=== PATIENT | female | born 1940 | race Caucasian/White ===

== ENCOUNTER 2019-05-10 13:18 | Inpatient (IN) | payer MEDICARE, SELFPAY ==
[2019-05-10 13:52] VITALS: BP 101/61; PULSE 110; RESP 20; TEMP 36.9; O2SAT 96; BMI 16.9
--- NOTE | 2019-05-10 15:02 | XR_ITS ---
WS: [id number] PORTABLE CHEST HISTORY: cough COMPARISON: 04/17/2019 Mild hyperexpansion of the lungs. Opacifications in the lower lung lowery seen on the prior study hav e slightly improved but not resolved. Persistent interstitial thickening at the medial RIGHT lung bas e. More focal nodule in the LEFT lower lung field measuring 1.5 cm. This nodule may contain a central cavitation. Overall the opacification in the LEFT lower lung field has slightly improved. No pleural effusion or pneumothorax. Cardiac size: Normal. Mediastinum/Aorta: Mild atherosclerosis aorta. Osteopenia. Prior IVC filter placement. 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 XR/XR chest 1V portable [id number] IMPRESSION: 1. Slight improvement in opacifications in the lower lung lowery as compared t o 04/17/2019. Likely due to improving pneumonia and atelectasis. 2. Appearance of a more focal nodule at the LEFT base measures 1.5 cm. Suggest follow-up chest CT with IV contrast to exclude developing abscess or neoplasm.
--- NOTE | 2019-05-10 15:06 | ED_ITS ---
Entered by Kae Garcia, acting as scribe for HPI - General Adult General: Chief complaint: General Medical Stated complaint: dehydrated Time Seen by Provider: 05/10/19 15:04 Source: patient and family Mode of arrival: ambulatory Limitations: no limitations History of Present Illness: HPI narrative: 79 yo female presents with abdomen pain. pt states she was seen by PCP yesterday and they had her labs drawn and they sent her here today. pt was DX with Cdiff. pt states her diarrhea got better after eating yogurt. pt denies any other symptoms at this time. MD complaint: diarrhea Onset (ago): day(s) (yesterday) Location: abdomen Radiation: non-radiation Severity: moderate Quality: aching Pain Consistency: constant Relieving factors: none Exacerbating factors: none Associated symptoms: Reports fevers/chills, nausea and vomiting; Deny chest pain, dyspnea or rash Treatments prior to arrival: none Review of Systems Const: Reports: chills and other (diarrhea, dehydrated) ENMT: Denies: throat pain, ear pain, nasal discharge or nasal congestion Card: Denies: chest pain, edema, shortness of breath on exertion or shortness of breath when lying down Resp: Denies: shortness of breath, productive cough or non-productive cough GI: Reports: abdominal pain, nausea, vomiting and diarrhea (yesterday,better with yogurt); Denies: vomiting blood, coffee grounds in vomit or blood in stool : Denies: flank pain, difficulty urinating, painful urination, urinary frequency or urinary urgency Skin/Breast: Denies: rash or itching PFSH ED PFSH: Statuses (acute, chronic, etc) shown below reflect problem list status as previously entered and may not be historically accurate Medical History History of DVT of lower extremity (Acute) 2010, Elvia filter placed, unknown if ever retrieved. Occurred in setting other acute medical issues. History of pleural empyema (Acute) 2010, had temporary tunneled catheter for drainage Surgical History Previous back surgery (Acute) unclear details Family History Mother , lived to 100s No problems noted. Social History Smoking and tobacco status: never smoked Alcohol intake: current Alcohol intake frequency: holidays/special occasions only Substance/Drug Use: never Household members: family Marital status: / Physical Exam Const: COMMON NORMALS: no apparent distress GENERAL APPEARANCE: cooperative and comfortable ORIENTATION/CONSCIOUSNESS: Yes awake, Yes oriented to person, Yes oriented to place and Yes oriented to time HENMT: COMMON NORMALS: normocephalic, head/scalp atraumatic, hearing grossly normal bilaterally, external ears normal, EAC's normal, TM's normal bilaterally, nasal mucous membranes and turbinates normal, moist oral mucous membranes and oropharynx normal HEAD & SCALP: normocephalic and atraumatic NOSE: nasal mucous membranes and turbinates normal EXTERNAL EAR: Yes external ears normal EXTERNAL AUDITORY CANAL: EAC's normal TYMPANIC MEMBRANE: TM's normal bilaterally Eye: COMMON NORMALS: PERRL, EOMs intact bilaterally, conjunctivae normal and no scleral icterus CONJUNCTIVA: Yes conjunctivae normal PUPIL: Yes PERRL Neck/C-Spine: COMMON NORMALS: full ROM, no lymphadenopathy, supple and no JVD Lymph: LYMPHATIC: no lymphadenopathy noted and no lymphedema noted Resp: COMMON NORMALS: normal respiratory effort, no retractions, no use of accessory muscles and clear to auscultation bilaterally AUSCULTATION: clear to auscultation bilaterally Cardio: COMMON NORMALS: no JVD, regular rate, regular rhythm and no murmurs RATE: regular rate RHYTHM: regular rhythm GI: COMMON NORMALS: no hepatosplenomegaly AUSCULTATION: Yes normoactive bowel sounds PALPATION: Yes tender (Generalized), No guarding, No rigid and Yes no hepatosplenomegaly Extremity: COMMON NORMALS: normal to inspection, normal capillary refill, no clubbing, cyanosis or edema, no calf tenderness and no pedal edema Neuro: SENSORIUM/ORIENTATION: Yes oriented to person, Yes oriented to place and Yes oriented to time Skin: COMMON NORMALS: no rashes or lesions noted GENERAL SKIN EXAM: no rashes or lesions noted Course ED course: I called [facility]id Pardo to get old H&H they last two they have are 1 0.9 on 10/05/18 and 11.5 on March 2016. Patient has mild abdominal discomfort is significantly anemic. We will admit her for anemia and further evaluation of her abdominal discomfort. Vital Signs: Vital signs: Vital Signs Temperature 98.7 F 05/12/19 09:47 Pulse Rate 90 05/12/19 07:25 Respiratory Rate 16 05/12/19 09:47 Blood Pressure 124/73 05/12/19 07:25 Pulse Oximetry 94 05/12/19 09:47 [facility] - General Adult Lab Data: Attestation: I reviewed the patient's lab results. Labs: Lab Results 05/10/19 05/10/19 05/10/19 Range/Units 15:28 15:28 15:28 WBC 7.7 (4.0-10.0) 10^3/ uL RBC 2.92 L (4.1-5.3) 10^6/u L Hgb 9.7 L (11.5-15.3) g/dL Hct 30.3 L (37.0-47.0) % MCV 103.8 H (81-99) fL MCH 33.2 (28.0-34.0) pg MCHC 32.0 (30.0-36.0) g/dL RDW 12.8 (12.1-15.1) % Plt Count 248 (130-400) 10^3/c mm MPV 9.8 (7.4-10.4) fL Neut % (Auto) 65.7 % Lymph % (Auto) 24.4 % Kemper % (Auto) 6.2 % Eos % (Auto) 2.3 % Baso % (Auto) 0.8 % Neut # (Auto) 5.1 (1.8-7.7) 10^3/u L Lymph # (Auto) 1.9 (0.8-4.8) 10^3/u L Kemper # (Auto) 0.5 (0.2-0.9) 10^3/u L Eos # (Auto) 0.2 (0.0-0.8) 10^3/u L Baso # (Auto) 0.1 (0.0-0.1) 10^3/u L Nucleated RBC % (a uto) 0 % Nucleated RBCs # 0.0 /100WBC Sodium 139 (136-145) mmol/L Potassium 4.3 (3.5-5.1) mmol/L Chloride 101 (98-107) mmol/L Carbon Dioxide 25 (22-29) mmol/L Anion Gap 17.3 (5-19) BUN 17 (8-23) mg/dL Creatinine 1.5 H (0.5-0.9) mg/dL Glucose 97 (74-106) mg/dL Lactate 1.7 (0.5-2.2) mmol/L Calcium 9.7 (8.8-10.2) mg/Dl Magnesium 1.8 (1.7-2.3) mg/dL Iron (37-145) ug/dL TIBC mg/dL % Saturation (20-50) % Unsat Iron Binding (112-347) ug/dL Total Bilirubin 0.3 (0.15-1.2) mg/dL AST 21 (0-32) U/L ALT 11 (0-33) U/L Alkaline Phosphata se 99 (35-105) IU/L Total Protein 7.2 (6.6-8.7) g/dL Albumin 3.4 L (3.5-5.2) g/dL Globulin 3.8 (1.3-4.6) g/dL Lipase 39 (13-60) U/L Vitamin B12 (232-1245) pg/mL Folate (4.8-37.3) ng/mL Urine Color (Yellow) Urine Appearance (CLEAR) Urine pH (5-7) Ur Specific Gravit y (1.005-1.030) Urine Protein (Negative) Urine Glucose (UA) (Normal) Urine Ketones (Negative) Urine Occult Blood (Negative) Urine Nitrate (Negative) Urine Bilirubin (NEGATIVE) Urine Urobilinogen (Negative) mg/dL Ur Leukocyte Huyen ase (Negative) 05/10/19 05/11/19 05/11/19 Range/Units 23:56 10:21 10:21 WBC 6.4 (4.0-10.0) 10^3/ uL RBC 2.59 L (4.1-5.3) 10^6/u L Hgb 9.1 L (11.5-15.3) g/dL Hct 27.9 L (37.0-47.0) % MCV 107.7 H (81-99) fL MCH 35.1 H (28.0-34.0) pg MCHC 32.6 (30.0-36.0) g/dL RDW 13.1 (12.1-15.1) % Plt Count 212 (130-400) 10^3/c mm MPV 9.9 (7.4-10.4) fL Neut % (Auto) 68.5 % Lymph % (Auto) 21.3 % Kemper % (Auto) 6.1 % Eos % (Auto) 3.0 % Baso % (Auto) 0.5 % Neut # (Auto) 4.4 (1.8-7.7) 10^3/u L Lymph # (Auto) 1.4 (0.8-4.8) 10^3/u L Kemper # (Auto) 0.4 (0.2-0.9) 10^3/u L Eos # (Auto) 0.2 (0.0-0.8) 10^3/u L Baso # (Auto) 0.0 (0.0-0.1) 10^3/u L Nucleated RBC % (a uto) 0 % Nucleated RBCs # 0.0 /100WBC Sodium 140 (136-145) mmol/L Potassium 3.7 (3.5-5.1) mmol/L Chloride 104 (98-107) mmol/L Carbon Dioxide 24 (22-29) mmol/L Anion Gap 15.7 (5-19) BUN 12 (8-23) mg/dL Creatinine 1.3 H (0.5-0.9) mg/dL Glucose 125 H (74-106) mg/dL Lactate (0.5-2.2) mmol/L Calcium 8.9 (8.8-10.2) mg/Dl Magnesium (1.7-2.3) mg/dL Iron 50 (37-145) ug/dL TIBC 170 mg/dL % Saturation 29.4 (20-50) % Unsat Iron Binding 120 (112-347) ug/dL Total Bilirubin 0.3 (0.15-1.2) mg/dL AST 17 (0-32) U/L ALT 9 (0-33) U/L Alkaline Phosphata se 77 (35-105) IU/L Total Protein 5.7 L D (6.6-8.7) g/dL Albumin 3.0 L (3.5-5.2) g/dL Globulin 2.7 (1.3-4.6) g/dL Lipase (13-60) U/L Vitamin B12 604 (232-1245) pg/mL Folate (4.8-37.3) ng/mL Urine Color Yellow (Yellow) Urine Appearance Clear (CLEAR) Urine pH 5 (5-7) Ur Specific Gravit y 1.020 (1.005-1.030) Urine Protein Neg (Negative) Urine Glucose (UA) Norm (Normal) Urine Ketones Negative (Negative) Urine Occult Blood Neg (Negative) Urine Nitrate Negative (Negative) Urine Bilirubin Neg (NEGATIVE) Urine Urobilinogen Norm (Negative) mg/dL Ur Leukocyte Huyen ase Negative (Negative) 05/11/19 Range/Units 10:21 WBC (4.0-10.0) 10^3/ uL RBC (4.1-5.3) 10^6/u L Hgb (11.5-15.3) g/dL Hct (37.0-47.0) % MCV (81-99) fL MCH (28.0-34.0) pg MCHC (30.0-36.0) g/dL RDW (12.1-15.1) % Plt Count (130-400) 10^3/c mm MPV (7.4-10.4) fL Neut % (Auto) % Lymph % (Auto) % Kemper % (Auto) % Eos % (Auto) % Baso % (Auto) % Neut # (Auto) (1.8-7.7) 10^3/u L Lymph # (Auto) (0.8-4.8) 10^3/u L Kemper # (Auto) (0.2-0.9) 10^3/u L Eos # (Auto) (0.0-0.8) 10^3/u L Baso # (Auto) (0.0-0.1) 10^3/u L Nucleated RBC % (a uto) % Nucleated RBCs # /100WBC Sodium (136-145) mmol/L Potassium (3.5-5.1) mmol/L Chloride (98-107) mmol/L Carbon Dioxide (22-29) mmol/L Anion Gap (5-19) BUN (8-23) mg/dL Creatinine (0.5-0.9) mg/dL Glucose (74-106) mg/dL Lactate (0.5-2.2) mmol/L Calcium (8.8-10.2) mg/Dl Magnesium (1.7-2.3) mg/dL Iron (37-145) ug/dL TIBC mg/dL % Saturation (20-50) % Unsat Iron Binding (112-347) ug/dL Total Bilirubin (0.15-1.2) mg/dL AST (0-32) U/L ALT (0-33) U/L Alkaline Phosphata se (35-105) IU/L Total Protein (6.6-8.7) g/dL Albumin (3.5-5.2) g/dL Globulin (1.3-4.6) g/dL Lipase (13-60) U/L Vitamin B12 (232-1245) pg/mL Folate 10.2 (4.8-37.3) ng/mL Urine Color (Yellow) Urine Appearance (CLEAR) Urine pH (5-7) Ur Specific Gravit y (1.005-1.030) Urine Protein (Negative) Urine Glucose (UA) (Normal) Urine Ketones (Negative) Urine Occult Blood (Negative) Urine Nitrate (Negative) Urine Bilirubin (NEGATIVE) Urine Urobilinogen (Negative) mg/dL Ur Leukocyte Huyen ase (Negative) Imaging Data^: CXR: Radiologist's impression: [address] [id number] XRay Report Signed Patient: Aida James AMR#: [id number] : 9Acct:[id number] Age/Sex: 79 / FADM Date: 05/10/19 Loc: ER Attending Dr: Ordering Physician: Shubham High DO Date of Service: 05/10/19 Procedure(s): XR chest 1V portable [id number] Accession Number(s): [id number] Report Number: [id number] WS: [id number] PORTABLE CHEST HISTORY: cough COMPARISON: 04/17/2019 Mild hyperexpansion of the lungs. Opacifications in the lower lung lowery seen on the prior study have slightly improved but not resolved. Persistent interstitial thickening at the medial RIGHT lung base. More focal nodule in the LEFT lower lung field measuring 1.5 cm. This nodule may contain a central cavitation. Overall the opacification in the LEFT lower lung field has slightly improved. No pleural effusion or pneumothorax. Cardiac size: Normal. Mediastinum/Aorta: Mild atherosclerosis aorta. Osteopenia. Prior IVC filter placement. Several vertebroplasties in the lower thoracic vertebral bodies. XR/XR chest 1V portable [id number] IMPRESSION: 1. Slight improvement in opacifications in the lower lung lowery as compared to 04/17/2019. Likely due to improving pneumonia and atelectasis. 2. Appearance of a more focal nodule at the LEFT base measures 1.5 cm. Suggest follow-up chest CT with IV contrast to exclude developing abscess or neoplasm. Dictated By:Jennifer Lowery DO Signed By:Jennifer Lowery DOSigned Date/Time:05/10/191606 DD/ 160 Discharge Plan Discharge Patient Disposition: Admitted As Inpatient Admit Provider: Matt Garcia Clinical Impression: Acute kidney injury, Macrocytic anemia, Abnormal CXR (chest x-ray) Condition: Stable Discharge Orders: Discharge Order (Routine); Ordered 05/12/19 Ordered By: Marla Bowden Referrals: [facility] ([facility]) [Outside] Ace Bedolla MD [Primary Care Provider] - (You have an appointment made with Dr. Bedolla on at 11:15am.) Discharge Diet: Usual diet Discharge Activity: with continued fall precautions Patient Instructions: Anemia, Dehydration - Adult, Acetaminophen/Codeine (By mouth), Alendronate (By mouth), Acute Kidney Injury (DC), Iron Rich Diet (DC) Interventions: ED Discharge Assessment Last Done: 05/10/19 19:01 Discharge Date/Time: 05/10/19 20:46 Coding Level of Care Code ED Potato Seed Cutter for Chg Fwd Exam Problem Focused The documentation recorded by the Jose monahan Bridget Annette, accurately reflects the service I personally performed and the decisions made by Anila ramirez Curtis L, DO May 10, 2019 13:18
[2019-05-10 15:37] LABS: Basophils # 0.1 10^3/uL (0.0-0.1); Basophils % 0.8 %; Eosinophils # 0.2 10^3/uL (0.0-0.8); Eosinophils % 2.3 %; Hematocrit 30.3 % (37.0-47.0); Hemoglobin 9.7 g/dL (11.5-15.3); Lymphocytes # 1.9 10^3/uL (0.8-4.8); Lymphocytes % 24.4 %; Mean Corpuscular Hemoglobin 33.2 pg (28.0-34.0); Mean Corpuscular Volume 103.8 fL (81-99); Mean Platelet Volume 9.8 fL (7.4-10.4); Monocytes # 0.5 10^3/uL (0.2-0.9); Monocytes % 6.2 %; Neutrophils # 5.1 10^3/uL (1.8-7.7); Neutrophils % 65.7 %; Nucleated Red Blood Cells % 0 %; Platelet Count 248 10^3/cmm (130-400); Red Blood Count 2.92 10^6/uL (4.1-5.3); Red Cell Distribution Width 12.8 % (12.1-15.1); White Blood Count 7.7 10^3/uL (4.0-10.0)
[2019-05-10 15:50] LABS: Lactate (Lactic Acid level) 1.7 mmol/L (0.5-2.2)
[2019-05-10] MEDS: sodium chloride 0.9% 1,000 ML 999 ML IV (16:00)
[2019-05-10 16:58] LABS: Alanine Aminotransferase 11 U/L (0-33); Albumin Level 3.4 g/dL (3.5-5.2); Alkaline Phosphatase 99 IU/L (35-105); Anion Gap 17.3 (5-19); Aspartate Amino Transferase 21 U/L (0-32); Blood Urea Nitrogen 17 mg/dL (8-23); Calcium 9.7 mg/Dl (8.8-10.2); Carbon Dioxide 25 mmol/L (22-29); Chloride 101 mmol/L (98-107); Globulin 3.8 g/dL (1.3-4.6); Glucose 97 mg/dL (74-106); Magnesium 1.8 mg/dL (1.7-2.3); Potassium 4.3 mmol/L (3.5-5.1); Sodium 139 mmol/L (136-145); Total Bilirubin 0.3 mg/dL (0.15-1.2); Total Protein 7.2 g/dL (6.6-8.7)
[2019-05-10 16:59] LABS: Lipase 39 U/L (13-60)
[2019-05-10 19:01] VITALS: BP 127/77; PULSE 88; RESP 16; O2SAT 98
--- NOTE | 2019-05-10 19:39 | PC.NURSE ---
pt given sack lunch. resting comfortably, no further needs at this time.
--- NOTE | 2019-05-10 19:59 | PC.NURSE ---
introduced self reviewed poc. awaiting room to be cleaned on med surg. will notify when ready. voiced understanding noted. denies needs at this time
--- NOTE | 2019-05-10 20:47 | PM.HP ---
Providers/Chief Complaint Admitting Physician: Lyndsay Martinez MD Primary Care Provider: Ace Bedolla MD Chief Complaint: dehydrated History of Present Illness Aida James is a 79 year old female who presented to the emergency room after being found to have acute kidney injury by her primary care provider. She says that she had pneumonia a week or so ago and was on antibiotics. There is also report of diarrhea and C. difficile colitis though I do not have confirmation. She says that she started eating some yogurt and the diarrhea improved. She is not had any for a couple of days. She has been more tired lately. She is also had some intermittent episodes of heavy breathing but that has improved as well. Review of external medication records shows that she was on doxycycline, Macrobid and Bactrim in December of last year, Rocephin in January of last year, Macrobid in March and Augmentin and azithromycin in April. I do not see any oral vancomycin or Flagyl. Patient denies any blood in her stools or black tarry stools. No difficulty with urination. She was found to have a creatinine of 1.5 as well as a hemoglobin of 9.7. She is being admitted for IV fluids and other evaluation and treatment as needed. Again her primary care provider called her and told her to come to the hospital. Review of Systems Const: Reports: fatigue; Denies: fever or change in weight Eyes: Denies: change in vision ENMT: Denies: throat pain or painful swallowing Card: Denies: chest pain, palpitations or edema Resp: Reports: shortness of breath (When she had pneumonia), productive cough (Sometimes), non-productive cough (Sometimes) and other (Overall breathing better this week) GI: Reports: nausea and diarrhea (Improved since she started yogurt); Denies: abdominal pain, vomiting or heartburn/indigestion : Denies: painful urination or urinary frequency Musc: Reports: joint pain and muscle weakness; Denies: joint swelling Skin/Breast: Reports: sores (Left lower extremity, stitches recently removed); Denies: rash or itching Neuro: Reports: frequent falls (Recently has had a couple of falls); Denies: headache, numbness in extremities or dizziness Psych: Denies: anxiety, depression or memory loss Don/Lymph: Denies: easy bruising or easy bleeding Medications/Allergies Home Medications Medication Instructions Recorded Confirmed Last Taken Type acetaminophen-codeine 1 tab PO QID PRN 05/10/19 05/10/19 Unknown History [Tylenol-Codeine #4] alendronate 70 mg PO Q7D 05/10/19 05/10/19 Unknown History Allergies Allergy/AdvReac Type Severity Reaction Status Date / Time meek Allergy ALGY-Difficulty Verified 05/10/19 13:59 Breathing PFSH Acute PFSH: Statuses (acute, chronic, etc) shown below reflect problem list status as previously entered and may not be historically accurate Medical History (Updated 05/10/19 @ 22:07 by Lyndsay Martinez MD) History of DVT of lower extremity (Acute) 2010, Elvia filter placed, unknown if ever retrieved. Occurred in setting other acute medical issues. History of pleural empyema (Acute) 2010, had temporary tunneled catheter for drainage Surgical History (Updated 05/10/19 @ 22:05 by Lyndsay Martinez MD) Previous back surgery (Acute) unclear details Family History (Updated 05/10/19 @ 22:07 by Lyndsay Martinez MD) Mother , lived to 100s No problems noted. Social History (Updated 05/10/19 @ 22:06 by Lyndsay Martinez MD) Smoking and tobacco status: never smoked Alcohol intake: current Alcohol intake frequency: holidays/special occasions only Substance/Drug Use: never Household members: family Marital status: / Vitals/I&O/Wt Last Vital Signs Temp 98.5 F 05/10/19 13:52 Pulse 88 05/10/19 19:01 Resp 16 05/10/19 19:01 BP 127/77 05/10/19 19:01 Pulse Ox 98 05/10/19 19:01 Weight last 48 hrs Weight 48.988 kg Physical Exam Const: COMMON NORMALS: oriented x3 and alert NUTRITIONAL APPEARANCE: thin HENMT: COMMON NORMALS: normocephalic; oral mucous membranes not moist Eye: COMMON NORMALS: PERRL and EOMs intact bilaterally Neck/C-Spine: COMMON NORMALS: supple Resp: COMMON NORMALS: no use of accessory muscles and clear to auscultation bilaterally Cardio: COMMON NORMALS: no JVD, regular rate and regular rhythm GI: COMMON NORMALS: normal to inspection, nondistended, normoactive bowel sounds, soft to palpation and non-tender : BLADDER/KIDNEY EXAM: No catheter in place Extremity: COMMON NORMALS: normal to inspection and no joint enlargement GENERAL: Yes atrophy Neuro: COMMON NORMALS: moves all extremities and no focal motor deficits Psych: COMMON NORMALS: cooperative and affect normal Skin: GENERAL SKIN EXAM: dry skin and turgor decreased WOUNDS: Yes wounds noted (left lower extremity on olmedo, healing well) margins well approximated and sutures removed Data Micro: Micro: Microbiology 05/10/19 15:28 Blood Culture - Pr eliminary Blood SPECIMEN [facility] 05/10/19 15:25 Blood Culture - Pr eliminary Blood SPECIMEN [facility] Other Data: Other data: Short CBC 05/10/19 Range/Units 15:28 WBC 7.7 (4.0-10.0) 10^3/ uL Hgb 9.7 L (11.5-15.3) g/dL Hct 30.3 L (37.0-47.0) % Plt Count 248 (130-400) 10^3/c mm BMP 05/10/19 15:28 Sodium 139 Potassium 4.3 Chloride 101 Carbon Dioxide 25 BUN 17 Creatinine 1.5 H Glucose 97 Calcium 9.7 Liver Function 05/10/19 Range/Units 15:28 Total Bilirubin 0.3 (0.15-1.2) mg/dL AST 21 (0-32) U/L ALT 11 (0-33) U/L Alkaline Phosphata se 99 (35-105) IU/L Albumin 3.4 L (3.5-5.2) g/dL Urine 05/10/19 Range/Units 23:56 Urine Color Yellow (Yellow) Urine Appearance Clear (CLEAR) Urine pH 5 (5-7) Ur Specific Gravit y 1.020 (1.005-1.030) Urine Protein Neg (Negative) Urine Glucose (UA) Norm (Normal) A&P Assessment and plan (1) Acute kidney injury: Do not currently have baseline creatinine value. Electrolytes otherwise okay. She has little muscle mass so suspect significant abnormality despite only moderate numerical elevation. Status: Acute Code(s): N17.9 - Acute kidney failure, unspecified (2) Dehydration: From volume losses by report Status: Acute Code(s): E86.0 - Dehydration (3) Diarrhea: There is report of recent c diff diagnosis, but I have no confirmation. No antibiotics for c diff in external medication history. She says yogurt cleared it. Unclear if this is in fact infectious or post infectious in nature related to change in gut neptali. Assuming infectious at this point and is in isolation. Would presumably be cause of AZAM and dehydration. Status: Acute Qualifiers: Diarrhea type: presumed infectious Qualified Code(s): R19.7 - Diarrhea, unspecified Code(s): R19.7 - Diarrhea, unspecified (4) Macrocytic anemia: ED obtained baseline hgb values of ~10-11 so currently with a drop. No reported blood loss. Suspect stool and nutritional losses from recent reported diarrhea and chronic issues, respectively. Status: Acute Code(s): D53.9 - Nutritional anemia, unspecified (5) Abnormal CXR (chest x-ray): Reports recent treatment for pneumonia on outpatient basis. May be residual from this. Will need outpatient follow up. Has history of empyema in 2010. Status: Acute Code(s): R93.89 - Abnormal findings on diagnostic imaging of other specified body structures Additional A&P Information Additional A&P Information: Other diagnoses: Recent fall with left leg laceration, sutures recently removed, healing well Plan: Admit observation for now Received fluids in ED, currently refusing to continue more fluids but agreeable to restart in am. Explained that this was one of the main reasons for admission. UA Stool for c diff if diarrhea Contact isolation until get more information See if we can get [facility] records Hold home alendronate Continue home tylenol #4 Recheck labs in am, including b12 and folate, iron given anemia Hemocult stool Fall precautions No pharamacologic DVT prophylaxis given recent drop in HH IPCs No GI prophylaxis given recent c diff Add lactobacillus Supportive care otherwise Will need follow up of CXR findings to ensure clearing FULL code Discussed with patient and nursing Attestations Medical Necessity Statement*: Currently anticipate stay less than 2 midnights for patient with recent diarrhea presenting with acute kidney injury and needing fluids. Coding Level of Care Code Acute Health Inspector for g Fwd Diagnoses Acute kidney injury N17.9 Dehydration E86.0 Diarrhea R19.7 Diarrhea type: presumed infectious Macrocytic anemia D53.9 Abnormal CXR (chest x-ray) R93.89
[2019-05-10 21:00] VITALS: BP 113/67; PULSE 101; RESP 18; TEMP 36.9; O2SAT 93
[2019-05-10 23:50] VITALS: BP 120/68; PULSE 96; RESP 18; TEMP 36.8; O2SAT 94
[2019-05-11 00:01] LABS: Add Urine Microscopic? NO
[2019-05-11 00:02] LABS: Bilirubin Urine Neg (NEGATIVE); Blood Urine Neg (Negative); Glucose Urine UA Norm (Normal); Ketones Urine Negative (Negative); Leukocyte Esterase Urine Negative (Negative); Nitrate Urine Negative (Negative); Protein Urine Neg (Negative); Urine Appearance Clear (CLEAR); Urine Color Yellow (Yellow); Urobilinogen Urine Norm (Negative); pH Urine 5 (5-7)
[2019-05-11 04:16] VITALS: BP 119/71; PULSE 91; RESP 20; TEMP 36.9; O2SAT 96
[2019-05-11 07:35] VITALS: BP 125/72; PULSE 84; RESP 16; TEMP 36.8; O2SAT 95
[2019-05-11] MEDS: lactobacillus 1 Tablet 1 TAB PO ×2 (09:01→17:46)
--- NOTE | 2019-05-11 09:52 | PM.PN ---
Subjective Subjective: Interval history: Chart reviewed, labs noted, will order repeat for today AM. Have had difficulty maintaining IV access therefore not consistently getting IVF. Re-established this afternoon. Has had no BMs so far since admission and denies having had diarrhea for about 2 weeks. Medications: Reviewed: Yes Medication Review Details: Active Medications Generic Name Dose Route Start Last Admin Trade Name Freq PRN Reason Stop Dose Admin Acetaminophen 650 mg 05/10/19 21:19 Tylenol PO Q6H PRN Mild/Mod Pain Or Temp >/= 101 Acetaminophen/Code ine Phosphate 1 tab 05/11/19 04:10 Tylenol #3 PO QID PRN MODERATE TO SEVER E PAIN Potassium Acetate 20 meq/ 1,000 mls @ 100 m ls/hr 05/10/19 21:19 05/10/19 22:54 Dextrose/Sodium Chloride IV Not Given .Q10H RADHA Potassium Chloride /Dextrose/Sod Cl 20 meq in 1,000 m ls @ 75 mls/hr 05/11/19 04:15 D5-Ns 0.45% + Allan l 20 Meq IV .[id number] RADHA Lactobacillus Acid ophilus 1 tab 05/11/19 09:00 05/11/19 09:01 Floranex PO 1 tab BID RADHA Administration Ondansetron HCl 4 mg 05/10/19 21:19 Zofran IVP Q6H PRN NAUSEA AND VOMITI NG meek Allergy (Verified 05/10/19 13:59) ALGY-Difficulty Breathing Vitals/I&O/Wt Last Vital Signs Temp 98.3 F 05/11/19 07:35 Pulse 84 05/11/19 07:35 Resp 16 05/11/19 07:35 BP 125/72 05/11/19 07:35 Pulse Ox 95 05/11/19 07:35 05/10/19 05/11/19 05/11/19 22:59 06:59 14:59 Intake Total 1000 / 1000 120 / 120 Output Total 350 / 350 Balance 1000 / 1000 -350 / 650 120 / 120 Weight last 48 hrs Weight 50.009 kg Weight 48.988 kg Physical Exam Const: COMMON NORMALS: no apparent distress and oriented x3 GENERAL APPEARANCE: cooperative, comfortable and frail appearing NUTRITIONAL APPEARANCE: thin ORIENTATION/CONSCIOUSNESS: Yes awake OTHER: looks appropriate for age HENMT: COMMON NORMALS: normocephalic, head/scalp atraumatic, hearing grossly normal bilaterally and moist oral mucous membranes HEAD & SCALP: normocephalic and atraumatic Eye: COMMON NORMALS: PERRL, EOMs intact bilaterally and conjunctivae normal CONJUNCTIVA: Yes conjunctivae normal PUPIL: Yes PERRL Neck/C-Spine: COMMON NORMALS: full ROM GENERAL: Yes normal visual inspection and Yes trachea midline Resp: COMMON NORMALS: normal respiratory effort, no retractions, no use of accessory muscles and clear to auscultation bilaterally EFFORT & INSPECTION: Yes able to speak in complete sentences, Yes symmetric chest movement and No tachypneic AUSCULTATION: clear to auscultation bilaterally Cardio: COMMON NORMALS: regular rate, regular rhythm, S1 normal heart sound, S2 normal heart sound and no murmurs RATE: regular rate RHYTHM: regular rhythm HEART SOUNDS: S1 normal and S2 normal GI: COMMON NORMALS: normal to inspection, nondistended, normoactive bowel sounds, soft to palpation and non-tender PALPATION: Yes soft Extremity: COMMON NORMALS: normal to inspection, full ROM and no clubbing, cyanosis or edema; negative for no pedal edema Neuro: COMMON NORMALS: oriented x3, moves all extremities, no focal motor deficits and no sensory deficits noted Psych: COMMON NORMALS: mental status grossly normal, thought process normal, cooperative, affect normal and speech normal SPEECH: Yes normal speech THOUGHT PROCESS: normal thought process Skin: COMMON NORMALS: no rashes or lesions noted (very thin skin overall), no jaundice, no petechiae and no mottling GENERAL SKIN EXAM: no rashes or lesions noted (very thin skin overall) Data Micro: Micro: Microbiology 05/10/19 15:28 Blood Culture - Pr eliminary Blood SPECIMEN [facility] 05/10/19 15:25 Blood Culture - Pr eliminary Blood SPECIMEN [facility] A&P Assessment and plan (1) Acute kidney injury: -AZAM likely secondary to dehydration superimposed on CKD stage 2 -baseline Cr per [employer] review has been wnl -lytes wnl -on IVF hydration -continue to monitor renal function, avoid nephrotoxins, renally dose meds -continue to monitor urine output -UA benign Status: Acute Code(s): N17.9 - Acute kidney failure, unspecified (2) Macrocytic anemia: -[facility], baseline Hg is around 11 -suspect that current Hg could be reflective of hemoconcentration given dehydration -continue to monitor H/H -check anemia panel Status: Acute Code(s): D53.9 - Nutritional anemia, unspecified (3) Abnormal CXR (chest x-ray): -noted CXR findings reported as lung opacifications (improving) in lower lung bases, focal L base nodule which will require further imaging with CT chest w/contrast once renal function has improved -continue to monitor respiratory status; supplemental oxygen as needed -not oxygen dependent at baseline Status: Acute Code(s): R93.89 - Abnormal findings on diagnostic imaging of other specified body structures (4) Diarrhea: -reportedly has hx of C.difficile; diarrhea etiology otherwise unclear but likely cause of dehydration and subsequent AZAM -f/u on stool studies, pending BM -contact isolation precautions -on probiotics Status: Acute Qualifiers: Diarrhea type: presumed infectious Qualified Code(s): R19.7 - Diarrhea, unspecified Code(s): R19.7 - Diarrhea, unspecified Additional A&P Information Additional A&P Information: -Advanced age -recent fall with LLE laceration, sutures recently removed, healing appropriately -Osteoporosis, on Aledronate; currently on hold due to renal impairment. Has prior hx of L1-L4 compression fractures, T6, T8 compression fractures; s/p vertebroplasty -hx of DVT, s/p IVC filter placement -regular diet as tolerated -fall precautions -DVT ppx with SCDs -Dispo: home -Code status: FULL code Attestations Medical Necessity Statement*: Patient requires hospitalization for continued IVF hydration, monitoring of renal function and hemoglobin. Coding Level of Care Code Acute Cashier Associate for Chg Fwd Exam Problem Focused Diagnoses Acute kidney injury N17.9 Macrocytic anemia D53.9 Abnormal CXR (chest x-ray) R93.89 Diarrhea R19.7 Diarrhea type: presumed infectious
[2019-05-11 10:35] LABS: Basophils % 0.5 %; Eosinophils # 0.2 10^3/uL (0.0-0.8); Hematocrit 27.9 % (37.0-47.0); Hemoglobin 9.1 g/dL (11.5-15.3); Lymphocytes # 1.4 10^3/uL (0.8-4.8); Lymphocytes % 21.3 %; Mean Corpuscular HGB Conc 32.6 g/dL (30.0-36.0); Mean Corpuscular Hemoglobin 35.1 pg (28.0-34.0); Mean Corpuscular Volume 107.7 fL (81-99); Mean Platelet Volume 9.9 fL (7.4-10.4); Monocytes # 0.4 10^3/uL (0.2-0.9); Monocytes % 6.1 %; Neutrophils # 4.4 10^3/uL (1.8-7.7); Neutrophils % 68.5 %; Nucleated Red Blood Cells % 0 %; Platelet Count 212 10^3/cmm (130-400); Red Blood Count 2.59 10^6/uL (4.1-5.3); Red Cell Distribution Width 13.1 % (12.1-15.1); White Blood Count 6.4 10^3/uL (4.0-10.0)
[2019-05-11 10:53] LABS: Alanine Aminotransferase 9 U/L (0-33); Alkaline Phosphatase 77 IU/L (35-105); Anion Gap 15.7 (5-19); Aspartate Amino Transferase 17 U/L (0-32); Blood Urea Nitrogen 12 mg/dL (8-23); Calcium 8.9 mg/Dl (8.8-10.2); Carbon Dioxide 24 mmol/L (22-29); Chloride 104 mmol/L (98-107); Globulin 2.7 g/dL (1.3-4.6); Glucose 125 mg/dL (74-106); Iron 50 ug/dL (37-145); Percent Saturation 29.4 % (20-50); Potassium 3.7 mmol/L (3.5-5.1); Sodium 140 mmol/L (136-145); Total Bilirubin 0.3 mg/dL (0.15-1.2); Total Iron Binding Capacity 170 mg/dL; Total Protein 5.7 g/dL (6.6-8.7); Unsaturated Iron Binding 120 ug/dL (112-347)
[2019-05-11 11:08] LABS: Vitamin B12 604 pg/mL (232-1245)
[2019-05-11 11:25] LABS: Folate Level 10.2 ng/mL (4.8-37.3)
[2019-05-11 11:55] VITALS: BP 120/72; PULSE 93; RESP 20; TEMP 36.9; O2SAT 95
--- NOTE | 2019-05-11 11:56 | PC.NURSE ---
Patient is refusing iv access. one attempt to access was not successful due to patient jerking arm and tell myself to get out of her room . physician was notified and is to see patient to determine further treatment. will continue to talk to patient about considering treatment.
[2019-05-11] MEDS: D5-NS 0.45% + KCL 20 mEq 20 MEQ/1,000 ML BAG 75 MEQ IV (12:43)
--- NOTE | 2019-05-11 15:21 | PC.CHAP ---
Pastoral Care Encounter/Spiritual Assessment Type of Contact [] Declined developer prover mechanical visit [] Patient/Family/Request visit [] Outpatient visit [] Follow-up visit [] Physician referral [] Code/Alert [] Routine visit [] Staff referral [] Actively dying [] Patient sleeping [] Family support [] [] Out of room [] Palliative care [] [] Receiving care in room [] Pre-surgical visit [] Trauma [] Long length of stay [] ICU visit[x] Other:percautios Relational/Emotional Strength [] Patient feels connected with others/family/visitors/staff [] Distress [] Loneliness/isolation [] Abandonment Spirituality of Patient [] Person of Michelle [] Attends Buddhism of their Michelle [] Believes in Prayer [] Reads Bible or Baptism materials [] There are Spiritual issues to be addressed Lithographic Press Operator Apprentice Interventions [] Prayer [] Active listening [] Non-anxious presence [] Spiritual/emotional support [] Crisis/trauma care [] Spiritual counseling [] Bereavement support [] Provided bereavement packet [] Provided Bible/devotional materials [] Provided toy/stuffed animal, coloring book to patient or family member [] Completed spiritual assessment [] Provided Communion [] Anointing/[place] [] Salvation [] Other: Impact on Illness or Injury [] Angry [] Fearful [] Anxious [] Often cries [] Exhaustion [] Unable to work [] Unable to attend anglican [] Unable to walk/stand [] Unable to read [] Unable to drive [] Unable to eat/drink [] Unable to sleep [] Unable to be with family [] Other: Summary precautions Time spent with patient
[2019-05-11 15:24] VITALS: BP 118/74; PULSE 101; RESP 18; TEMP 36.9; O2SAT 97
[2019-05-11 19:22] VITALS: BP 145/68; PULSE 90; RESP 18; TEMP 37; O2SAT 95
[2019-05-11 23:59] VITALS: BP 145/68; PULSE 90; RESP 18; TEMP 37; O2SAT 95
[2019-05-12] MEDS: D5-NS 0.45% + KCL 20 mEq 20 MEQ/1,000 ML BAG 75 MEQ IV (00:37)
[2019-05-12 03:37] VITALS: BP 145/68; PULSE 90; RESP 18; TEMP 37; O2SAT 95
--- NOTE | 2019-05-12 04:35 | PC.NURSE ---
Patient refused her morning vital signs.
[2019-05-12 07:02] LABS: Blood Urea Nitrogen 10 mg/dL (8-23); Calcium 8.5 mg/Dl (8.8-10.2); Carbon Dioxide 23 mmol/L (22-29); Chloride 103 mmol/L (98-107); Glucose 94 mg/dL (74-106); Sodium 133 mmol/L (136-145)
[2019-05-12 07:05] LABS: Basophils % 0.6 %; Eosinophils # 0.3 10^3/uL (0.0-0.8); Eosinophils % 4.1 %; Hematocrit 26.7 % (37.0-47.0); Hemoglobin 8.5 g/dL (11.5-15.3); Lymphocytes # 1.8 10^3/uL (0.8-4.8); Lymphocytes % 28.2 %; Mean Corpuscular HGB Conc 31.8 g/dL (30.0-36.0); Mean Corpuscular Hemoglobin 32.7 pg (28.0-34.0); Mean Corpuscular Volume 102.7 fL (81-99); Mean Platelet Volume 10.5 fL (7.4-10.4); Monocytes # 0.4 10^3/uL (0.2-0.9); Monocytes % 6.6 %; Neutrophils # 3.9 10^3/uL (1.8-7.7); Neutrophils % 59.9 %; Nucleated Red Blood Cells % 0 %; Platelet Count 213 10^3/cmm (130-400); Red Cell Distribution Width 12.9 % (12.1-15.1); White Blood Count 6.5 10^3/uL (4.0-10.0)
[2019-05-12 07:25] VITALS: BP 124/73; PULSE 90; RESP 16; TEMP 37.1; O2SAT 94
--- NOTE | 2019-05-12 08:49 | PM.DCS ---
Discharge Providers Date of Admission: 05/11/19 15:40 Date of Discharge: 05/12/19 Attending Provider at Admission: Matt Garcia MD Attending Provider at Discharge: Marla Bowden MD Primary Care Provider: Ace Bedolla MD Diagnoses at Discharge Discharge Diagnosis (1) Acute kidney injury: Status: Acute (2) Macrocytic anemia: Status: Acute (3) Abnormal CXR (chest x-ray): Status: Acute (4) Diarrhea: Status: Acute Qualifiers: Diarrhea type: presumed infectious Qualified Code(s): R19.7 - Diarrhea, unspecified Reason for Visit Reason for Visit: Reason For Visit: dehydrated Hospital Course Hospital Course: Patient was admitted to the medical surgical floor and started on IV fluid hydration with close monitoring of her renal function and hemoglobin. She has been hemodynamically stable. She has responded well to IV fluid hydration as evidenced by improved renal function. I expect that this will continue to improve until her kidney function normalizes. She is encouraged to hydrate orally. Her hemoglobin has remained between 8-9 to her baseline appears to be around 11. Part of this is due to dilution given IV fluid hydration that she has been receiving. She has not required transfusion of any blood products and has not been noted to have any bleeding. There was concern for possible C. difficile colitis given higher complaints of diarrhea though patient has not had any bowel movements during her hospital stay. As a precaution she was on contact isolation precautions and maintained on probiotics. Home health services specifically for nursing were requested to ensure that she is taking her medications correctly. She is to be discharged home today with appropriate follow-up with her primary care provider within 1 week. She may require follow-up CBC and BMP during her visit with her primary care provider. Of note patient was found to have a left lung base nodule as well as some bilateral bibasilar opacifications on her chest x-ray. Recommendation was made to have a CT chest with IV contrast but due to noted renal impairment this was not done during her hospital stay. CT chest has been ordered as an outpatient in approximately 2 weeks to allow for appropriate recovery of her renal function. Physical Exam Const: COMMON NORMALS: no apparent distress and oriented x3 GENERAL APPEARANCE: cooperative, comfortable and frail appearing NUTRITIONAL APPEARANCE: thin ORIENTATION/CONSCIOUSNESS: Yes awake OTHER: looks appropriate for age HENMT: COMMON NORMALS: normocephalic, head/scalp atraumatic, hearing grossly normal bilaterally and moist oral mucous membranes HEAD & SCALP: normocephalic and atraumatic Eye: COMMON NORMALS: PERRL, EOMs intact bilaterally and conjunctivae normal CONJUNCTIVA: Yes conjunctivae normal PUPIL: Yes PERRL Neck/C-Spine: COMMON NORMALS: full ROM GENERAL: Yes normal visual inspection and Yes trachea midline Resp: COMMON NORMALS: normal respiratory effort, no retractions, no use of accessory muscles and clear to auscultation bilaterally EFFORT & INSPECTION: Yes able to speak in complete sentences, Yes symmetric chest movement and No tachypneic AUSCULTATION: clear to auscultation bilaterally Cardio: COMMON NORMALS: regular rate, regular rhythm, S1 normal heart sound, S2 normal heart sound and no murmurs RATE: regular rate RHYTHM: regular rhythm HEART SOUNDS: S1 normal and S2 normal GI: COMMON NORMALS: normal to inspection, nondistended, normoactive bowel sounds, soft to palpation and non-tender PALPATION: Yes soft Extremity: COMMON NORMALS: normal to inspection, full ROM and no clubbing, cyanosis or edema; negative for no pedal edema Neuro: COMMON NORMALS: oriented x3, moves all extremities, no focal motor deficits and no sensory deficits noted Psych: COMMON NORMALS: mental status grossly normal, thought process normal, cooperative, affect normal and speech normal SPEECH: Yes normal speech THOUGHT PROCESS: normal thought process Skin: COMMON NORMALS: no rashes or lesions noted (very thin skin overall), no jaundice, no petechiae and no mottling GENERAL SKIN EXAM: no rashes or lesions noted (very thin skin overall) Discharge Data Data Completed and Pending: Completed Studies During Hospitalization Category Date Time Status XR chest 1V last ble [id number] Urgent Exams 05/10/19 15:02 Completed Pending at discharge Category Date Time Status Blood Culture Sta t Lab 05/10/19 15:28 Results C. DIFF BY PCR Ro utine Lab 05/11/19 04:12 Uncollected Occult Blood Stoo l Routine Lab 05/11/19 04:12 Uncollected Labs from last 24 hours 05/12/19 05/12/19 05/11/19 05:41 05:41 10:21 WBC 6.5 RBC 2.60 L Hgb 8.5 L Hct 26.7 L MCV 102.7 H MCH 32.7 MCHC 31.8 RDW 12.9 Plt Count 213 MPV 10.5 H Neut % (Auto) 59.9 Lymph % (Auto) 28.2 Mineral % (Auto) 6.6 Eos % (Auto) 4.1 Baso % (Auto) 0.6 Neut # (Auto) 3.9 Lymph # (Auto) 1.8 Mineral # (Auto) 0.4 Eos # (Auto) 0.3 Baso # (Auto) 0.0 Nucleated RBC % (a uto) 0 Nucleated RBCs # 0.0 Sodium 133 L Potassium 4.0 Chloride 103 Carbon Dioxide 23 Anion Gap 11.0 BUN 10 Creatinine 1.1 H Glucose 94 Calcium 8.5 L Iron TIBC % Saturation Unsat Iron Binding Total Bilirubin AST ALT Alkaline Phosphata se Total Protein Albumin Globulin Vitamin B12 Folate 10.2 05/11/19 05/11/19 10:21 10:21 WBC 6.4 RBC 2.59 L Hgb 9.1 L Hct 27.9 L MCV 107.7 H MCH 35.1 H MCHC 32.6 RDW 13.1 Plt Count 212 MPV 9.9 Neut % (Auto) 68.5 Lymph % (Auto) 21.3 Mineral % (Auto) 6.1 Eos % (Auto) 3.0 Baso % (Auto) 0.5 Neut # (Auto) 4.4 Lymph # (Auto) 1.4 Mineral # (Auto) 0.4 Eos # (Auto) 0.2 Baso # (Auto) 0.0 Nucleated RBC % (a uto) 0 Nucleated RBCs # 0.0 Sodium 140 Potassium 3.7 Chloride 104 Carbon Dioxide 24 Anion Gap 15.7 BUN 12 Creatinine 1.3 H Glucose 125 H Calcium 8.9 Iron 50 TIBC 170 % Saturation 29.4 Unsat Iron Binding 120 Total Bilirubin 0.3 AST 17 ALT 9 Alkaline Phosphata se 77 Total Protein 5.7 L D Albumin 3.0 L Globulin 2.7 Vitamin B12 604 Folate Vitals: Last Vital Signs Temp 98.7 F 05/12/19 07:25 Pulse 90 05/12/19 07:25 Resp 16 05/12/19 07:25 BP 124/73 05/12/19 07:25 Pulse Ox 94 05/12/19 07:25 Discharge Plan Discharge Patient Disposition: Home Health Service Condition: Stable Prescriptions: Continued alendronate 70 mg Tablet 70 mg PO Q7D RF: 0 Tylenol-Codeine #4 300-60 mg Tablet 1 tab PO QID PRN (Reason: Pain) RF: 0 Discharge Orders: Discharge Order (Routine); Ordered 05/12/19 Ordered By: Marla Bowden Other Ambulatory Orders: CT chest w con* [id number] (Routine) Timeframe: 2 Weeks Facility: [facility] - Location: Radiology [facility] [facility] Ordered By: Marla Bowden Referrals: Ace Bedolla MD [Primary Care Provider] - Discharge Diet: Usual diet Discharge Activity: with continued fall precautions Discharge Attestations Time Spent in Discharge Care*: greater than 30 min Specific Discharge Activities: Specific discharge activities: educating patient and evaluating patient/reviewing data Quality Metrics Clinical Quality Measures During this hospital stay, did patient experience: None Coding Level of Care Code Acute Disaster Recovery Consultant for Chg Fwd Diagnoses Acute kidney injury N17.9 Macrocytic anemia D53.9 Abnormal CXR (chest x-ray) R93.89 Diarrhea R19.7 Diarrhea type: presumed infectious
[2019-05-12] MEDS: lactobacillus 1 Tablet 1 TAB PO (09:06)
[2019-05-12 09:47] VITALS: RESP 16; TEMP 37.1; O2SAT 94
== END 2019-05-12 10:35 | disposition home health service (06) | DRG 684 ==
LOC: ER 19:04 → MEDSURG 20:07
PROVIDERS: Hospitalist; Admitting Provider Student in an Organized Health Care Education/Training Program; Emergency Provider Family Medicine; Family Provider Family Medicine; PCP Family Medicine; Visit Provider Family Medicine
DX: N17.9 Acute kidney failure, unspecified (principal); R19.7 Diarrhea, unspecified; D53.9 Nutritional anemia, unspecified; E86.0 Dehydration; Z86.718 Personal history of other venous thrombosis and embolism
CPT/HCPCS: 36415; 71045; 80048; 80053; 81003; 82607; 82746; 83540; 83550; 83605; 83690; 83735; 85025; 87040; 99281; G0378; J7030

== ENCOUNTER 2019-05-22 10:40 | Outpatient (CLI) | payer MEDICARE, SELFPAY ==
--- NOTE | 2019-05-22 | XR_ITS ---
WS: [id number] Facial bones 4 views. HISTORY: Patient fell. COMPARISON: None. Bones are diffusely osteopenic. No air-fluid levels in the sinuses. Orbits are intact. No fractures a re identified. Incomplete evaluation of the mandibular condyles. RIGHT zygomatic arch is not visualiz ed. XR/XR facial bones min 3V* [id number] IMPRESSION: 1. No facial bone fractures are identified. Facial bone structures are incomple tely visualized. 2. Radiographs are insensitive examination for facial bone fractures. Consider follow-up facial bone CT.
--- NOTE | 2019-05-22 | XR_ITS ---
WS: [id number] CHEST 2 VIEWS HISTORY: COMMUNITY ACQUIRED PNEUMONIA COMPARISON: 05/10/2019 Lungs: Hyperinflated lungs. Focal pulmonary opacification in the RIGHT lower lung field. The configur ation is slightly changed since 05/10/2019. There is a new irregular opacification at the RIGHT lung ba se. On the lateral projection these findings are consistent with atelectasis and airspace disease in the RIGHT middle lobe and lingula. Cardiac size: Normal. Mediastinum/Aorta: Mild atherosclerosis aorta. Bones: Osteopenia. Vertebral plasties in the mid to lower thoracic spine at T10 and T11. T7 and T8 ve rtebral planar compression fractures. IVC filter. XR/XR chest 2V* [id number] IMPRESSION: 1. Subsegmental atelectasis in the RIGHT middle and lingula. Slight progressio n since 05/10/2019. Superimposed pneumonia is also suspected. Close follow-up rec ommended. If these changes do not resolve chest CT with IV contrast should be o btained. 2. Chronic emphysema.
== END 2019-05-22 10:41 | disposition home or self-care (01) ==
LOC: RADOUTREAD 14:24
PROVIDERS: Family Provider Family Medicine; PCP Family Medicine; Visit Provider Family Medicine
DX: Z76.89 Persons encountering health services in other specified circumstances (principal)

== ENCOUNTER 2019-06-08 08:57 | Outpatient (CLI) | payer MEDICARE, SELFPAY ==
--- NOTE | 2019-06-08 | XR_ITS ---
WS: [id number] Chest 2 views, 06/08/2019 Clinical Data: COMMUNITY ACQUIRED PNEUMONIA Comparison: PA and lateral chest, 05/22/2019 Findings: No nodules, masses or effusions are seen. The heart is normal. The pulmonary vascularity is not increased. The opacities in the right middle lobe and lingula have almost totally cleared. The d iaphragms are flattened. There is a kyphosis of the thoracic spine with multiple compression fracture s and osteoporosis. Kyphoplasty of the T10 and T11 vertebral bodies is noted. There is a vena caval f ilter in position. XR/XR chest 2V* [id number] Impression: 1. TOTAL clearing of right middle lobe and lingular opacities. 2. Hyperinflation.
== END 2019-06-08 08:58 | disposition home or self-care (01) ==
LOC: RADOUTREAD 15:45
PROVIDERS: Family Provider Family Medicine; PCP Family Medicine; Visit Provider Family Medicine
DX: Z76.89 Persons encountering health services in other specified circumstances (principal)

== ENCOUNTER 2019-12-13 08:08 | Outpatient (CLI) | payer MEDICARE, SELFPAY ==
--- NOTE | 2019-12-13 09:39 | CT_ITS ---
WS: [id number] CT of the lumbar spine, additional two-dimensional coronal and sagittal imaging was obtained. 12/13/19 Clinical Data: LOW BACK PAIN Comparison: CT lumbar spine, 03/21/2019. DLP: 1373.[address] scans at [facility] use at least one of these dose optimization techniques: automat ed exposure control; mA and/or kV adjustment per patient size (includes targeted exams where dose is matched to clinical indication); or iterative reconstruction. Findings: There is diffuse osteoporosis. Multiple compression fractures are present involving L1, L2, L3 and L4. The degree of compression is 75% at L1 and L4 and approximately 50% at L3 and L2. There is a vena caval filter.. No change in the degree of compression is seen. Arthroplasties were performe d at T11 and T12 vertebral bodies. T12-L1: No canal stenosis, disc bulge or foraminal narrowing is se en. L1-L2: No canal stenosis, disc bulge or foraminal narrowing is seen. L2-L3: No canal stenosis, disc bulge or foraminal narrowing is seen. L3-L4: There is a broad-based disc bulge causing mild canal stenosis and mild foraminal stenosis. L4-L5: There is a minimal broad-based disc bulge causing mild canal stenosis. L5-S1: No canal stenosis, disc bulge or foraminal narrowing is seen. CT/CT lumbar spine wo con* [id number] Impression: 1. No change in compression fractures from L1 through L4. 2. No change in disc bulge at L3-L4 and L4-L5. 3. No change in diffuse osteoporosis.
--- NOTE | 2019-12-13 09:39 | CT_ITS ---
WS: [id number] CT scan of the thoracic spine. Additional two-dimensional coronal and sagittal reconstruction was per formed. 12/13/2019 Clinical Data: THORACIC COMPRESSION FX Comparison: MRI thoracic spine, 05/24/2017. DLP: 1808.[address] scans at [facility] use at least one of these dose optimization techniques: automat ed exposure control; mA and/or kV adjustment per patient size (includes targeted exams where dose is matched to clinical indication); or iterative reconstruction. Findings: There are multiple compression fractures. The severe compression fractures are T7 and T8 with loss of 75% or more of the central vertebral body height. There are compression fractures of T6 with loss of 50% of vertebral body height. The compression frac tures of T10 and T11 have lost approximately 50% of the central vertebral body height and there is ve rtebroplasty cement within. There is a slight loss of height of the T12 vertebral body with loss of 2 5% of the vertebral body height. There is no vertebral body retropulsion into the spinal canal. There is osteoporosis and kyphosis of the thoracic spine. There is no significant central canal stenosis. The proximal ribs are unremarkable. CT/CT thoracic spin wo con* [id number] Impression: 1. Osteoporosis of all the thoracic vertebral bodies. 2. Multiple compression fractures unchanged except for loss of vertebral body h eight of T12 since 05/24/2017..
== END 2019-12-13 08:09 | disposition home or self-care (01) ==
PROVIDERS: Family Provider Family Medicine; PCP Family Medicine; Visit Provider Family Medicine
DX: S22.060A Wedge compression fracture of T7-T8 vertebra, initial encounter for closed fracture (principal); S22.050A Wedge compression fracture of T5-T6 vertebra, initial encounter for closed fracture; S22.070A Wedge compression fracture of T9-T10 vertebra, initial encounter for closed fracture; S22.080A Wedge compression fracture of T11-T12 vertebra, initial encounter for closed fracture; M81.0 Age-related osteoporosis without current pathological fracture; M51.26 Other intervertebral disc displacement, lumbar region; X58.XXXA Exposure to other specified factors, initial encounter
CPT/HCPCS: 72128; 72131

== ENCOUNTER 2020-02-07 11:39 | Outpatient (CLI) | payer MEDICARE, SELFPAY ==
--- NOTE | 2020-02-07 | CT_ITS ---
WS: [id number] CT ABDOMEN PELVIS TECHNIQUE: Noncontrast CT of the abdomen and pelvis with coronal and sagittal reformatted images. CLINICAL INFORMATION: RLQ PAIN COMPARISON: 5 13,017 DLP: 219.[address] scans at [facility] use at least one of these dose optimization techniques: automat ed exposure control; mA and/or kV adjustment per patient size (includes targeted exams where dose is matched to clinical indication); or iterative reconstruction. FINDINGS: Noncontrast liver is normal. Noncontrast spleen is normal. IVC filter. Cholelithiasis. Noncalcified n odule right middle lobe measuring 6 mm. Normal GE junction. Normal caliber abdominal aorta. Aortic calcification. Bilateral renal cortical at rophy. Adrenal glands are normal. No hydronephrosis. Sigmoid diverticulosis. No evidence of small or large bowel obstruction. Normal appendix. No periaort ic lymphadenopathy. No inguinal or pelvic lymphadenopathy. Multiple biconcave compression fractures in the lower thoracic and lumbar spine. New mild biconcave c ompression at L3. Progressed biconcave compression at L1. Biconcave compression at T12 with mild compression. Prior vertebroplasty changes at T10 and T11. Stab le mild compression superior endplate L2 and biconcave compression at L4 CT/CT abdomen pelvis wo con [id number] IMPRESSION: 1. No evidence of high-grade small or large bowel obstruction. No free fluid i n the pelvis. 2. No abdominal or pelvic lymphadenopathy. 3. Sigmoid diverticulosis. No evidence of acute diverticulitis. 4. IVC filter. 5. Cholelithiasis. 6. Noncalcified nodule right middle lobe measuring 6 mm. Recommend 12 month fo llow-up. 7. New biconcave compression fracture at L3 with mild compression. New mild bi concave compression at L1 with loss of approximately 60% height centrally. New mild biconcave compression at T12 with sclerosis. 8. Chronic biconcave compression at L4 unchanged. Mild compression superior en dplate L2 is unchanged. 9. Prior vertebroplasty changes at T10 and T11.
[2020-02-07] MEDS: iohexol 300 mg/mL 50 mL Btl PO (13:33)
== END 2020-02-07 11:40 | disposition home or self-care (01) ==
LOC: RAD 11:47
PROVIDERS: PCP Family Medicine; Visit Provider Family Medicine
DX: R10.31 Right lower quadrant pain (principal); K57.30 Diverticulosis of large intestine without perforation or abscess without bleeding; K80.20 Calculus of gallbladder without cholecystitis without obstruction; R91.1 Solitary pulmonary nodule; S32.030A Wedge compression fracture of third lumbar vertebra, initial encounter for closed fracture; S32.040A Wedge compression fracture of fourth lumbar vertebra, initial encounter for closed fracture; X58.XXXA Exposure to other specified factors, initial encounter
CPT/HCPCS: 74176

== ENCOUNTER 2020-03-26 07:39 | Emergency (ER) | payer MEDICARE, SELFPAY ==
[2020-03-26 07:42] VITALS: BP 140/67; PULSE 90; RESP 16; TEMP 36.4; O2SAT 94; BMI 16.7
--- NOTE | 2020-03-26 07:46 | XR_ITS ---
WS: [id number] XR hand RT min 3V* [id number] REASON FOR EXAM: CAT BITE FINDINGS: There is mild narrowing of the joint spaces with subchondral sclerosis in the DIP and MIP joints of t he right second through the fourth finger and within the interphalangeal joint of the right thumb. Similar joint changes are seen in the metacarpal phalangeal joint and carpal metacarpal joint of the right thumb. No focal bony abnormality is identified. No radiopaque soft tissue abnormality is noted. XR/XR hand RT min 3V* [id number] IMPRESSION: Findings of mild osteoarthropathy with no focal bony or soft tissue abnormality identified.
--- NOTE | 2020-03-26 07:58 | W.ED.ANIMALB ---
HPI - Animal Bite General: Chief Complaint: Animal Bite Stated Complaint: marvin bite Time Seen by Provider: 03/26/20 07:41 Source: patient and EMS Mode of arrival: EMS Limitations: no limitations History of Present Illness: HPI narrative: Pleasant 80-year-old female patient presents to the emergency department with cat bite to the right dorsal hand. She reports was petting her cat this morning when the cat bit her. She sustained a laceration to the dorsal hand, states cat is up-to-date on vaccines, including rabies. She received tetanus shot less than 6 months ago. She is right-hand dominant. complaint: animal bite Onset (ago): minute(s) (30) Animal: cat Description of animal: household pet, immunizations UTD and appeared well Mechanism: bite Location - Extremities: Right: hand Pain description: sharp Context: unprovoked Associated symptoms: Reports bleeding; Deny chills, diaphoresis, fever(s) or headache(s) Treatments prior to arrival: wound dressing(s) Review of Systems General: Reports: 10 or more systems reviewed and unremarkable except in HPI and below Const: Denies: fever(s), chills or diaphoresis Eyes: Denies: blurry vision or eye redness ENMT: Denies: throat pain, dental pain or disequilibrium Card: Denies: chest pain, palpitations or irregular heart rhythm Resp: Denies: dyspnea, productive cough, non-productive cough or wheezing GI: Denies: abdominal pain, nausea or vomiting : Denies: difficulty voiding or dysuria Musc: Reports: back pain (COMPRESSION FRACTURE BY HISTORY); Denies: neck pain, extremity pain or joint warmth Skin/Breast: Reports: skin tenderness and other (LACERATION); Denies: rash or pruritus Neuro: Denies: headache(s), weakness in extremities or behavioral changes Psych: Denies: anxiety or depression Don/Lymph: Denies: easy bruising PFSH ED PFSH: Medical History (Updated 03/26/20 @ 08:15 by ELIANE Roberts) History of DVT of lower extremity 2010, Mcdougal filter placed, unknown if ever retrieved. Occurred in setting other acute medical issues. History of pleural empyema 2010, had temporary tunneled catheter for drainage Surgical History Previous back surgery unclear details Family History Mother , lived to 100s No problems noted. Social History Smoking and tobacco status: never smoked Alcohol intake: current Alcohol intake frequency: holidays/special occasions only Household members: family Marital status: / Physical Exam Const: COMMON NORMALS: no acute distress, patient oriented x3, healthy appearing and alert GENERAL APPEARANCE: cooperative, comfortable and well hydrated HENMT: COMMON NORMALS: normocephalic, Normal external nose present and moist oral mucous membranes HEAD & SCALP: normocephalic NOSE: Normal external nose present Eye: COMMON NORMALS: Equal, round and reactive pupils present and EOMs intact bilaterally GENERAL EYE: appearance normal, both eyes and all related structures PUPIL: Yes Equal, round and reactive pupils present Neck/C-Spine: COMMON NORMALS: full ROM and no lymphadenopathy GENERAL: Yes normal visual inspection and Yes trachea midline CERVICAL SPINE: Yes cervical ROM normal Lymph: LYMPHATIC: no lymphadenopathy noted Chest: COMMONS NORMALS: normal inspection of the chest Resp: COMMON NORMALS: normal respiratory effort and clear to auscultation bilaterally AUSCULTATION: clear to auscultation bilaterally Cardio: COMMON NORMALS: regular rhythm, S1 normal heart sound present and S2 normal heart sound present RHYTHM: regular rhythm HEART SOUNDS: S1 normal heart sound present and S2 normal heart sound present GI: COMMON NORMALS: Soft to palpation and non-tender INSPECTION: Yes normal to inspection PALPATION: Yes Soft to palpation : COMMON NORMALS: Yes no CVA tenderness BLADDER/KIDNEY EXAM: Yes no CVA tenderness Back/Pelvis: COMMON NORMALS: no CVA tenderness and thoracic and lumbar spine normal to inspection Extremity: COMMON NORMALS: normal to inspection, full ROM and capillary refill normal GENERAL: Yes normal exam except as noted RIGHT UPPER EXTREMITY: Yes hand & digits (LACERATION DORSAL HAND 3 CM LINEAR) Right hand and digits: Yes palpation, Yes ROM exam (FULL FLEXION/EXTENSION TO ALL DIGITS OF THE RT HAND) and Yes neurovascular exam (DISTALLY INTACT) Neuro: COMMON NORMALS: patient oriented x3 and no focal motor deficits SENSORIUM/ORIENTATION: Yes alert Psych: COMMON NORMALS: mental status grossly normal, Normal thought process present and cooperative ACTIVITY/MOTOR BEHAVIOR: Yes appropriate eye contact THOUGHT PROCESS: Normal thought process present Skin: COMMON NORMALS: no rashes or lesions noted and turgor normal GENERAL SKIN EXAM: no rashes or lesions noted and turgor normal Procedures Laceration Laceration 1: Site: hand (rt dorsal hand) Side (If applicable): right Size (cm): 3 Description: linear Depth: simple, single layer Pre-repair: wound explored, irrigated extensively, deep structures intact and extensive debridement Technique: other (steri-strips with skin adhesive applied) Course Vital Signs: Vital signs: Vital Signs Temperature 97.5 F L 03/26/20 07:42 Pulse Rate 90 03/26/20 07:42 Respiratory Rate 15 03/26/20 08:28 Blood Pressure 140/67 03/26/20 07:42 Pulse Oximetry 94 03/26/20 07:42 MDM - Animal Bite Imaging Data^: Other Imaging: Radiologist's impression: [address] [address] XRay Report Signed Patient: Aida James Unit #: [id number] : 1940 Age/Sex: 80 / F ADM Date: 03/26/20 Loc: ER Room/Bed: Attending Dr: Ordering Provider/Ordering MD: Danyell Wells Date of Service: 03/26/20 Procedure(s): XR hand RT min 3V* 10004 Accession Number(s): [id number] Report Number: [id number] WS: [id number] XR hand RT min 3V* 58460 REASON FOR EXAM: CAT BITE FINDINGS: There is mild narrowing of the joint spaces with subchondral sclerosis in the DIP and MIP joints of the right second through the fourth finger and within the interphalangeal joint of the right thumb. Similar joint changes are seen in the metacarpal phalangeal joint and carpal metacarpal joint of the right thumb. No focal bony abnormality is identified. No radiopaque soft tissue abnormality is noted. XR/XR hand RT min 3V* [id number] IMPRESSION: Findings of mild osteoarthropathy with no focal bony or soft tissue abnormality identified. Dictated By: Guille Aguilera Jr, MD Signed By: Guille Aguilera Jr, MD Signed Date/Time: 03/26/20805 DD/ 1 Discharge Plan Discharge Patient Disposition: Home Clinical Impression: Cat bite involving extremity Clinical Impression: (Ruled Out): Acute kidney injury Condition: Stable Prescriptions: New Augmentin 875-125 mg tablet 1 tab PO BID Qty: 14 RF: 0 No Action alendronate 70 mg Tablet 70 mg PO Q7D RF: 0 Tylenol-Codeine #4 300-60 mg Tablet 1 tab PO QID PRN (Reason: Pain) RF: 0 Discharge Orders: Discharge Order (Routine); Ordered 03/26/20 Ordered By: Danyell Wells Referrals: Ace Bedolla MD [Primary Care Provider] - Discharge Diet: Usual diet Discharge Activity: Limit activity as instructed Patient Instructions: Animal Bite (ED), Laceration (ED), Skin Adhesive Care (ED) Activity Restrictions/Additional Instructions: RETURN TO THE ED IF RT HAND IS RED WITH STREAKING UP THE ARM, ENLARGMENT OF LYMPH NODES OR FEVER/CHILLS, IF YOU ARE NOT ABLE TO MOVE FINGERS, YOU WILL NEED FURTHER EVALUATION TAKE AUGMENTIN UNTIL ALL GONE - TAKE WITH FOOD TO AVOID STOMACH UPSET DO NOT SUBMERGE HAND IN WATER - MAY PAT WITH SOAP AND WATER AND PAT DRY IF DRAINAGE OCCURS. 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
[2020-03-26] MEDS: amoxicillin-clav 875-125 mg Tablet 1 TAB PO (08:04)
[2020-03-26 08:07] VITALS: RESP 16
[2020-03-26 08:28] VITALS: RESP 15
== END 2020-03-26 08:28 | disposition home or self-care (01) ==
PROVIDERS: Emergency Provider Nurse Practitioner Family; PCP Family Medicine
DX: S61.451A Open bite of right hand, initial encounter (principal); W55.01XA Bitten by cat, initial encounter
CPT/HCPCS: 12002; 12345; 73130; 99283

== ENCOUNTER 2020-07-27 14:46 | Emergency (ER) | payer MEDICARE, SELFPAY ==
[2020-07-27 14:55] VITALS: BP 110/65; PULSE 96; RESP 18; TEMP 36.7; O2SAT 94; BMI 15.9
--- NOTE | 2020-07-27 15:41 | ECG_ITS ---
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 Measurements Intervals [place] Rate: 79 P: -9 NC: 136 QRS: 29 QRSD: 87 T: 47 QT: 364 QTc: 419 Interpretive Statements SINUS RHYTHM MINIMAL VOLTAGE CRITERIA FOR LVH, CONSIDER NORMAL VARIANT [MEETS CRITERIA IN ONE OF: R(aVL), S(V1), R(V5), R(V5/V6)+S(V1)] Compared to ECG 03/18/2017 14:42:13 No significant changes Electronically Signed On 07-27-2020 17:03:55 CDT by Keith Cho M.D. [email or web address] care [email or web address].[id number]
--- NOTE | 2020-07-27 15:41 | XRR_ITS ---
PROCEDURE INFORMATION: Exam: XR Chest Exam date and time: 07/27/2020 3:47 PM Age: 80 years old Clinical indication: Cough and dyspnea; Additional info: Dyspnea/cough TECHNIQUE: Imaging protocol: XR of the chest Views: 1 view. COMPARISON: CR XR chest 2V* [id number] 02/06/2020 1:53 PM FINDINGS: Lungs: Emphysema. No consolidation. Reticular interstitial change stable from prior. Bilateral apical pulmonary scarring. Pleural spaces: Unremarkable. No pleural effusion. No pneumothorax. Heart/Mediastinum: Unremarkable. No cardiomegaly. Vasculature: IVC filter right upper abdomen unchanged in position from prior. Terminates at the T12-L1 disc space level. Bones/joints: Bones are demineralized. Multilevel vertebral augmentation changes of lower thoracic spine. No acute thoracic fractures. XR/XR chest 1V portable [id number] IMPRESSION: 1. No acute pulmonary disease. 2. No change from prior.
--- NOTE | 2020-07-27 15:52 | ED_ITS ---
HPI - General Adult General: Chief complaint: General Medical Stated complaint: yellow skin Time Seen by Provider: 07/27/20 15:40 History of Present Illness: HPI narrative: 80-year-old female comes in with her daughter. daughter is complaining of her being jaundiced. Also complaining of back pain the patient is a history of compression fracture she takes meloxicam she also takes Tylenol for it. No recent trauma or fall no history of alcoholic liver disease no history of cirrhosis or esophageal varices. No recent abdominal surgeries. Onset (ago): year(s) Location: back Severity: mild Quality: aching Pain Consistency: constant Relieving factors: immobilization Exacerbating factors: none Associated symptoms: Deny chest pain, confusion, cough, diaphoresis, decreased appetite, dyspnea, fevers/chills, headache(s), malaise, nausea, rash, palpitations, seizures, short of breath, syncope, vomiting or weakness Treatments prior to arrival: none Review of Systems Const: Denies: malaise or diaphoresis ENMT: Denies: throat pain, ear or mastoid pain, nasal discharge or nasal congestion Card: Denies: chest pain, palpitations or syncope Resp: Denies: dyspnea GI: Denies: nausea or vomiting : Denies: flank pain, difficulty voiding, dysuria, urinary frequency or urinary urgency Skin/Breast: Denies: rash Neuro: Denies: headache(s) or confusion PFS ED PFSH: Medical History (Updated 07/27/20 @ 17:24 by Shubham High DO) History of DVT of lower extremity 2010, Elvia filter placed, unknown if ever retrieved. Occurred in setting other acute medical issues. History of pleural empyema 2010, had temporary tunneled catheter for drainage Surgical History Previous back surgery unclear details Family History Mother , lived to 100s No problems noted. Social History Smoking and tobacco status: never smoked Alcohol intake: current Alcohol intake frequency: holidays/special occasions only Household members: family Marital status: / Physical Exam Const: COMMON NORMALS: no acute distress GENERAL APPEARANCE: cooperative and comfortable ORIENTATION/CONSCIOUSNESS: Yes awake, Yes oriented to person, Yes oriented to place and Yes oriented to time HENMT: COMMON NORMALS: normocephalic, atraumatic and hearing grossly normal bilaterally HEAD & SCALP: normocephalic and atraumatic Eye: COMMON NORMALS: Equal, round and reactive pupils present, EOMs intact bilaterally, conjunctivae normal and no scleral icterus CONJUNCTIVA: Yes conjunctivae normal PUPIL: Yes Equal, round and reactive pupils present Neck/C-Spine: COMMON NORMALS: full ROM, no lymphadenopathy, supple and no JVD Resp: COMMON NORMALS: normal respiratory effort, No retractions, No use of accessory muscles and clear to auscultation bilaterally AUSCULTATION: clear to auscultation bilaterally Cardio: COMMON NORMALS: no JVD, regular rate, regular rhythm and No murmurs present (Cardio) RATE: regular rate RHYTHM: regular rhythm GI: COMMON NORMALS: Soft to palpation and No hepatosplenomegaly present AUSCULTATION: Yes normoactive bowel sounds PALPATION: Yes Soft to palpation, No Tenderness to palpation present (GI), No Guarding due to palpation present (GI) and Yes No hepatosplenomegaly present Back/Pelvis: OTHER: Significant kyphosis of the thoracic spine Extremity: COMMON NORMALS: normal to inspection, capillary refill normal, no clubbing, cyanosis or edema, no calf tenderness and no pedal edema Neuro: SENSORIUM/ORIENTATION: Yes oriented to person, Yes oriented to place and Yes oriented to time Skin: COMMON NORMALS: no rashes or lesions noted GENERAL SKIN EXAM: no rashes or lesions noted Course Vital Signs: Vital signs: Vital Signs Temperature 98.1 F 07/27/20 14:55 Pulse Rate 96 07/27/20 14:55 Respiratory Rate 18 07/27/20 14:55 Blood Pressure 110/65 07/27/20 14:55 Pulse Oximetry 94 07/27/20 14:55 MDM - General Adult MDM Narrative: Medical decision making narrative: Patient has 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 She also has mildly elevated creatinine and potassium. We are going to to give her some fluids before going home. I do like it soon off to warrant hospital admission she should increase her fluid intake discussed this with her. She did not he want a wait for fluids but we were able to convince her to stay for those. May have her stop her meloxicam replace it with Tylenol. Additionally we will have her switch from a full aspirin to a baby aspirin daily she needs to follow-up with a repeat creatinine and potassium within the week if she has any worsening problems return to the emergency room. Lab Data: Labs: Lab Results 07/27/20 07/27/20 07/27/20 Range/Units 16:00 16:00 16:45 WBC 4.7 (4.0-10.0) 10^3/ uL RBC 2.86 L (4.1-5.3) 10^6/u L Hgb 9.9 L (11.5-15.3) g/dL Hct 31.8 L (37.0-47.0) % MCV 111.2 H (81-99) fL MCH 34.6 H (28.0-34.0) pg MCHC 31.1 (30.0-36.0) g/dL RDW 13.2 (12.1-15.1) % Plt Count 148 (130-400) 10^3/c mm MPV 11.2 H (7.4-10.4) fL Neut % (Auto) 47.2 % Lymph % (Auto) 35.1 % [place] % (Auto) 9.8 % Eos % (Auto) 6.8 % Baso % (Auto) 0.9 % Neut # (Auto) 2.22 (1.8-7.7) 10^3/u L Lymph # (Auto) 1.7 (0.8-4.8) 10^3/u L [place] # (Auto) 0.5 (0.2-0.9) 10^3/u L Eos # (Auto) 0.3 (0.0-0.8) 10^3/u L Baso # (Auto) 0.0 (0.0-0.1) 10^3/u L Nucleated RBC % (a uto) 0 % Nucleated RBCs # 0.0 /100WBC Sodium 140 (136-145) mmol/L Potassium 5.6 H (3.5-5.1) mmol/L Chloride 104 (98-107) mmol/L Carbon Dioxide 28 (22-29) mmol/L Anion Gap 13.6 (5-19) BUN 43 H (8-23) mg/dL Creatinine 2.0 H (0.5-0.9) mg/dL GFR Calculation Not Reportable Glucose 79 (65-115) mg/dL Calculated Osmolal ity 300 H (285-295) mOsm/k g Calcium 9.0 (8.5-10.5) mg/dL Total Bilirubin 0.6 (0.15-1.2) mg/dL AST 17 (0-32) U/L ALT 12 (0-33) U/L Alkaline Phosphata se 64 (35-105) IU/L Creatine Kinase 45 (26-192) U/L Total Protein 7.1 (6.6-8.7) g/dL Albumin 4.2 (3.5-5.2) g/dL Globulin 2.9 (1.3-4.6) g/dL Lipase 115 H (13-60) U/L Urine Color [place] (Yellow) Urine Appearance Clear (CLEAR) Urine pH 6.5 (5-7) Ur Specific Gravit y 1.015 (1.005-1.030) Urine Protein 3+ H (Negative) Urine Glucose (UA) Norm (Normal) Urine Ketones Negative (Negative) Urine Blood Neg (Negative) Urine Nitrate TNP Urine Bilirubin TNP Urine Urobilinogen TNP Ur Leukocyte [place]uyen ase Negative (Negative) Urine RBC None (0-2) /hpf Urine WBC Rare (0-5) /hpf Ur Squamous Epith Cells 0-4 H (0-5) /hpf Amorphous Sediment Not Reportable Urine Bacteria Trace (NONE) /hpf Hyaline Casts 0-4 H /lpf Urine Mucus Trace /hpf Discharge Plan Discharge Patient Disposition: Home Clinical Impression: Macrocytic anemia, Creatinine elevation, Hyperkalemia Condition: Stable Prescriptions: New aspirin 81 mg tablet,delayed release (DR/EC) 81 mg PO DAILY Qty: 30 RF: 0 Discontinued multivitamin Tablet 1 tab PO DAILY RF: 0 aspirin 325 mg Tablet 325 mg PO BEDTIME RF: 0 meloxicam 7.5 mg tablet 7.5 mg PO BID RF: 0 No Action cyanocobalamin (vitamin B-12) 1,000 mcg/mL solution 1,000 mcg IM Q30D RF: 0 fluticasone propionate 50 mcg/actuation spray,suspension 1 spray INTRANASAL BID PRN (Reason: Allergy Symptoms) RF: 0 Unknown Name Of Pee Pill See Rx Instructions .ROUTE .COMPLEX RF: 0 Discharge Orders: Discharge ED (Routine); Ordered 07/27/20 Ordered By: Shubham High Referrals: Ace Bedolla MD [Primary Care Provider] - Discharge Diet: Usual diet Discharge Activity: Increase activity as tolerated Patient Instructions: Opioid Safety Coding Level of Care Code ED 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
[2020-07-27 16:24] LABS: Basophils % 0.9 %; Eosinophils # 0.3 10^3/uL (0.0-0.8); Eosinophils % 6.8 %; Hematocrit 31.8 % (37.0-47.0); Hemoglobin 9.9 g/dL (11.5-15.3); Lymphocytes # 1.7 10^3/uL (0.8-4.8); Lymphocytes % 35.1 %; Mean Corpuscular HGB Conc 31.1 g/dL (30.0-36.0); Mean Corpuscular Hemoglobin 34.6 pg (28.0-34.0); Mean Corpuscular Volume 111.2 fL (81-99); Mean Platelet Volume 11.2 fL (7.4-10.4); Monocytes # 0.5 10^3/uL (0.2-0.9); Monocytes % 9.8 %; Neutrophils # 2.22 10^3/uL (1.8-7.7); Neutrophils % 47.2 %; Nucleated Red Blood Cells % 0 %; Platelet Count 148 10^3/cmm (130-400); Red Blood Count 2.86 10^6/uL (4.1-5.3); Red Cell Distribution Width 13.2 % (12.1-15.1); White Blood Count 4.7 10^3/uL (4.0-10.0)
--- NOTE | 2020-07-27 16:54 | PC.NURSE ---
EKG done at 1647 and show to ER doctor.
[2020-07-27 17:00] LABS: Alanine Aminotransferase 12 U/L (0-33); Albumin Level 4.2 g/dL (3.5-5.2); Alkaline Phosphatase 64 IU/L (35-105); Anion Gap 13.6 (5-19); Aspartate Amino Transferase 17 U/L (0-32); Blood Urea Nitrogen 43 mg/dL (8-23); Carbon Dioxide 28 mmol/L (22-29); Chloride 104 mmol/L (98-107); Creatine Phosphokinase 45 U/L (26-192); Globulin 2.9 g/dL (1.3-4.6); Glucose 79 mg/dL (65-115); Lipase 115 U/L (13-60); Osmolality Calculated 300 mOsm/kg (285-295); Potassium 5.6 mmol/L (3.5-5.1); Sodium 140 mmol/L (136-145); Total Bilirubin 0.6 mg/dL (0.15-1.2); Total Protein 7.1 g/dL (6.6-8.7)
[2020-07-27 17:00] LABS: Blood Urine Neg (Negative); Glucose Urine UA Norm (Normal); Ketones Urine Negative (Negative); Protein Urine 3+ (Negative); Specific Gravity, Urine 1.015 (1.005-1.030); Urine Appearance Clear (CLEAR); Urine Color Orange (Yellow); pH Urine 6.5 (5-7)
[2020-07-27 17:05] LABS: Add Urine Microscopic? YES; Leukocyte Esterase Urine Negative (Negative)
[2020-07-27 17:08] LABS: Squamous Epithelial Cell Urine 0-4 /hpf (0-5); WBC Urine RARE /hpf (0-5)
[2020-07-27 17:09] LABS: Bacteria Urine TRACE /hpf; Hyaline Casts Urine 0-4 /lpf; Mucus Urine TRACE /hpf
[2020-07-27 17:11] LABS: Add Urine Culture? No
[2020-07-27] MEDS: sodium chloride 0.9% 1,000 ML 999 ML IV (17:29)
[2020-07-27 18:19] VITALS: BP 112/67; PULSE 95; RESP 18; O2SAT 96
== END 2020-07-27 18:21 | disposition home or self-care (01) ==
PROVIDERS: Emergency Provider Family Medicine; PCP Family Medicine
DX: D53.9 Nutritional anemia, unspecified (principal); E87.5 Hyperkalemia; R79.89 Other specified abnormal findings of blood chemistry
CPT/HCPCS: 71045; 80053; 81001; 82550; 83690; 85025; 93005; 96360; 99283; J7030

== ENCOUNTER 2020-09-09 10:33 | Outpatient (CLI) | payer MEDICARE, SELFPAY ==
[2020-09-09 11:49] LABS: Basophils % 0.9 %; Eosinophils # 0.1 10^3/uL (0.0-0.8); Eosinophils % 2.8 %; Hematocrit 35.1 % (37.0-47.0); Hemoglobin 11.5 g/dL (11.5-15.3); Lymphocytes # 1.4 10^3/uL (0.8-4.8); Lymphocytes % 34.1 %; Mean Corpuscular HGB Conc 32.8 g/dL (30.0-36.0); Mean Corpuscular Volume 106.7 fL (81-99); Mean Platelet Volume 11.2 fL (7.4-10.4); Monocytes # 0.3 10^3/uL (0.2-0.9); Monocytes % 7.1 %; Neutrophils # 2.31 10^3/uL (1.8-7.7); Neutrophils % 54.9 %; Nucleated Red Blood Cells % 0 %; Platelet Count 144 10^3/cmm (130-400); Red Blood Count 3.29 10^6/uL (4.1-5.3); Red Cell Distribution Width 12.2 % (12.1-15.1); White Blood Count 4.2 10^3/uL (4.0-10.0)
[2020-09-09 14:50] LABS: Reticulocyte % 0.9 % (0.5-2.0)
--- NOTE | 2020-09-09 15:07 | ONC CON_ITS ---
Dr. Mark New Patient Note Patient: Aida James Unit #: [id number]: 1940 Dicatated By: Jerrod Mark M.D.Date of Visit: September 09, 2020 Onc MED New Patient/Consult Referring Physician: Dr. PIETER GARCIA M.D. History of Present Illness: Ms. Aida James, is a 80-year-old female with a past medical history significant for chronic back pain, osteoporosis, diverticulitis, cervicogenic vertigo, breast augmentation, status post implant removal later on,, routine labs was found to have within normal hemoglobin and work-up done on July 30, 2020 showed B12 was 506, folate was 23.4 SPEP no abnormality, sed rate 33, ferritin 90 iron 89 TIBC 337, Patient denies any night sweats, denies any fever chills but about 5 to 7 pounds weight loss over the period of few months, denies any peripheral numbness, denies any abdominal fullness, patient states she has been taking B12 injection without any problem. Patient denies any shortness of breath or palpitation at rest, patient denies any seizure-like activity or antiseizure medication, denies any [id number] medication. Past Medical History: Ms. James's medical history consists of anxiety, arthritis, bipolar disorder, cervicogenic vertigo, depression, diverticulitis, history of c diff, history of DVT, history of lumbar compression fracture, history of thoracic compression fracture, osteoporosis, and vitamin b12 deficiency. Past Surgical History: Ms. James's surgical/procedural history consists of mastectomy - bilateral, tonsillectomy, covid vaccine #2 in 2020, and covid vaccine #1 in 2020. Medications: There is no information available for Current Medications - Patient. Allergies: Christine and NSAIDs. Social History: Ms. James is and she is retired. Ms. James has never smoked. She drinks occasionally. Ms. James reports the following support systems: lives alone. Family History: Ms. James's mother at age 100. Ms. James's father is : myocardial infarction. Review Of Symptoms: Review of Systems is not available for this patient. Vital Signs: Performed on September 09, 2020 13:07: 3, 0, 0.00, 0.00 sq.m, 98 %, 81 /min, 18 /min, 157/79 mm(hg) (HIGH), 97.3 F (LOW), and 98 lbs (HIGH). Performance Status: 1 - No physically strenuous activity, but ambulatory and able to carry out light or sedentary work (e.g. office work, light house work). (ECOG) Physical Examination: ENMT - No mouth sores, no thrush, no jaundice no cervical or axillary lymphadenopathy, Respiratory - Lungs are clear to auscultation, Cardiovascular - Regular rate and rhythm of heart, Abdomen - Soft, bowel sounds present, Extremities - No visible edema or rash. Lab/Imaging: Most recent lab results are not available for this patient. Impression: Macrocytosis with normal hemoglobin, etiology could be multifactorial, considering her age underlying myelodysplasia cannot be ruled out other possibility could be B12/folate deficiency or copper deficiency or hypothyroidismOr medication Lab work-up done on July 30, 2020 showed B12 was 506, folate was 23.4, SPEP/immunofixation showed no monoclonal protein, sed rate mildly elevated at 33, creatinine 1.7 with normal LFTs, Osteoporosis, on alendronate since May 2015, History of arthritis, Plan: Discussed with patient regarding her labs white blood count 4.2 hemoglobin 11.5 hematocrit 35.1 MCV 106.7 platelets 144,000 with a normal differential Clinically, patient doing reasonably well, with no new signs symptoms except chronic generalized weakness and fatigue, CBC done today showed persistent macrocytosis with normal hemoglobin which is on the low side of normal., Etiology could be multifactorial including B12 deficiency or functional B12 deficiency, Other possibility could be hypothyroidism or copper deficiency and considering her age underlying myelodysplasia cannot be ruled out, at this point we will check RBC folate, serum homocysteine level, methylmalonic level, reticulocyte count, TSH and then she will return to clinic in 2 weeks with CBC, if above-mentioned work-up is normal, then bone marrow evaluation can be helpful to confirm underlying myelodysplasia. Signed By: Jerrod Mark M.D. <<Signature on File>>
[2020-09-09 15:14] LABS: Homocysteine 11.13; Thyroid Stimulating Hormone 2.31 uIU/mL (0.27-4.20)
[2020-09-09 16:20] LABS: Free T4 Free Thyroxine 1.26 ng/dL (0.82-1.77)
[2020-09-09 16:24] LABS: Folate Level > 20.0 ng/mL (4.8-37.3)
[2020-09-14 20:12] LABS: Copper Level 145 mcg/dL (70-175)
[2020-09-15 06:37] LABS: Methylmalonic Acid 203 nmol/L (87-318)
== END 2020-09-09 10:34 | disposition home or self-care (01) ==
PROVIDERS: PCP Family Medicine; Visit Provider Internal Medicine Hematology & Oncology
DX: D75.89 Other specified diseases of blood and blood-forming organs (principal); D51.9 Vitamin B12 deficiency anemia, unspecified; E83.00 Disorder of copper metabolism, unspecified; E03.9 Hypothyroidism, unspecified; M81.0 Age-related osteoporosis without current pathological fracture; M19.90 Unspecified osteoarthritis, unspecified site; Z79.899 Other long term (current) drug therapy; Z86.79 Personal history of other diseases of the circulatory system
CPT/HCPCS: 36415; 82525; 82746; 83090; 83921; 84439; 84443; 85025; 85045; 99204

== ENCOUNTER 2020-09-26 08:41 | Outpatient (CLI) | payer MEDICARE, SELFPAY ==
[2020-09-26 09:29] LABS: Basophils % 0.9 %; Eosinophils # 0.2 10^3/uL (0.0-0.8); Hematocrit 31.7 % (37.0-47.0); Hemoglobin 10.2 g/dL (11.5-15.3); Lymphocytes # 1.5 10^3/uL (0.8-4.8); Lymphocytes % 33.6 %; Mean Corpuscular HGB Conc 32.2 g/dL (30.0-36.0); Mean Corpuscular Hemoglobin 34.7 pg (28.0-34.0); Mean Corpuscular Volume 107.8 fL (81-99); Mean Platelet Volume 10.9 fL (7.4-10.4); Monocytes # 0.2 10^3/uL (0.2-0.9); Monocytes % 5.1 %; Neutrophils # 2.51 10^3/uL (1.8-7.7); Neutrophils % 56.2 %; Nucleated Red Blood Cells % 0 %; Platelet Count 162 10^3/cmm (130-400); Red Blood Count 2.94 10^6/uL (4.1-5.3); Red Cell Distribution Width 12.4 % (12.1-15.1); White Blood Count 4.5 10^3/uL (4.0-10.0)
--- NOTE | 2020-09-27 12:37 | ONC FU_ITS ---
Dr. Mark follow up note Patient: Aida James Unit #: [id number]: 1940 Dicatated By: Jerrod Mark M.D.Date of Visit:September 26, 2020 Onc Med Follow-up/Prog Note History of Present Illness: Ms. Aida James, is a 80-year-old female with a past medical history significant for chronic back pain, osteoporosis, diverticulitis, cervicogenic vertigo, breast augmentation, status post implant removal later on,, routine labs was found to have within normal hemoglobin and work-up done on July 30, 2020 showed B12 was 506, folate was 23.4 SPEP no abnormality, sed rate 33, ferritin 90 iron 89 TIBC 337, Patient denies any night sweats, denies any fever chills but about 5 to 7 pounds weight loss over the period of few months, denies any peripheral numbness, denies any abdominal fullness, patient states she has been taking B12 injection without any problem. Patient denies any shortness of breath or palpitation at rest, patient denies any seizure-like activity or antiseizure medication, denies any oram-ilf-[id number] medication. Came for follow-up specific complaints, no fever chills, no nausea or vomiting, no diarrhea or constipation, no night sweats, no weight loss, no peripheral lymphadenopathy, no jaundice, no melena or hematochezia, no hemoptysis or hematemesis mild generalized weakness and fatigue, Medications: Mirabegron ER (50 mg) Tablet SR 24 HR Oral daily, traMADol HCl (50 mg) Tablet Oral daily PRN Allergies: Christine and NSAIDs. Review of Systems: Review of Systems is not available for this patient. Vital Signs: Performed on September 26, 2020 11:18 Weight - 99.4 lbs (HIGH) BSA - 0.00 sq.m BMI - 0.00 Temperature - 96.9 F (LOW) Pulse - 88 /min Respiration - 18 /min BP - 124/79 mm(hg) O2 Sat - 98 % Pain - 8 Fatigue - 9 Performance Status: 0 - Fully active, able to carry on all predisease activities without restrictions. (ECOG) Physical Examination: ENMT - No mouth sores, no thrush, no jaundice, Respiratory - Lungs are clear to auscultation, Cardiovascular - Regular rate and rhythm of heart, Abdomen - Soft, bowel sounds present, Extremities - No visible edema. Lab/Imaging: Most recent lab results are not available for this patient. Impression: Macrocytosis with normal hemoglobin, etiology could be multifactorial, considering her age underlying myelodysplasia cannot be ruled out other possibility could be B12/folate deficiency or copper deficiency or hypothyroidismOr medication Lab work-up done on July 30, 2020 showed B12 was 506, folate was 23.4, SPEP/immunofixation showed no monoclonal protein, sed rate mildly elevated at 33, creatinine 1.7 with normal LFTs, Osteoporosis, on alendronate since May 2015, History of arthritis, Plan: Discussed with patient regarding her labs white blood count 4.5 hemoglobin 10.2 hematocrit 31.7 platelets 162,000 MCV 107.8 copper level 145, folate more than 20, methylmalonic acid 203, TSH 2.31 T4 1.26, reticulocyte count 0.9 Clinically, patient is doing well with no new signs symptom, she has well compensated mild anemia her anemia work-up remained inconclusive, no evidence of iron deficiency or B12 deficiency, reticulocyte count is low in relation to her hemoglobin, and with macrocytosis, consistent with underlying possibility of myelodysplasia. Her follow-up labs shows drop in her hemoglobin from 11.5 g on Sep 09 2020 to 10.2 g today, with no obvious sign of blood loss, patient not symptomatic from her anemia and she is rather prefer observation so she will return to clinic in 1 month with CBC if there is a further drop in her hemoglobin, will consider bone marrow evaluation Signed By: Jerrod Mark M.D. <<Signature on File>>
== END 2020-09-26 08:42 | disposition home or self-care (01) ==
PROVIDERS: PCP Family Medicine; Visit Provider Internal Medicine Hematology & Oncology
DX: D75.89 Other specified diseases of blood and blood-forming organs (principal); D51.9 Vitamin B12 deficiency anemia, unspecified; M81.0 Age-related osteoporosis without current pathological fracture; Z79.899 Other long term (current) drug therapy
CPT/HCPCS: 36415; 85025; 99214

== ENCOUNTER 2020-10-29 09:41 | Outpatient (CLI) | payer MEDICARE, SELFPAY ==
[2020-10-29 10:05] LABS: Basophils # 0.1 10^3/uL (0.0-0.1); Basophils % 1.4 %; Eosinophils # 0.1 10^3/uL (0.0-0.8); Eosinophils % 3.3 %; Hematocrit 31.3 % (37.0-47.0); Hemoglobin 10.1 g/dL (11.5-15.3); Lymphocytes # 1.3 10^3/uL (0.8-4.8); Lymphocytes % 35.9 %; Mean Corpuscular HGB Conc 32.3 g/dL (30.0-36.0); Mean Corpuscular Hemoglobin 34.6 pg (28.0-34.0); Mean Corpuscular Volume 107.2 fL (81-99); Mean Platelet Volume 10.2 fL (7.4-10.4); Monocytes # 0.3 10^3/uL (0.2-0.9); Monocytes % 9.1 %; Neutrophils # 1.82 10^3/uL (1.8-7.7); Neutrophils % 50.3 %; Nucleated Red Blood Cells % 0 %; Platelet Count 160 10^3/cmm (130-400); Red Blood Count 2.92 10^6/uL (4.1-5.3); Red Cell Distribution Width 12.8 % (12.1-15.1); White Blood Count 3.6 10^3/uL (4.0-10.0)
--- NOTE | 2020-10-30 17:18 | ONC FU_ITS ---
Dr. Mark follow up note Patient: Aida James Unit #: [id number]: 1940 Dicatated By: Jerrod Mark M.D.Date of Visit:Oct 29, 2020 Onc Med Follow-up/Prog Note History of Present Illness: Ms. Aida James, is a 80-year-old female with a past medical history significant for chronic back pain, osteoporosis, diverticulitis, cervicogenic vertigo, breast augmentation, status post implant removal later on,, routine labs was found to have within normal hemoglobin and work-up done on July 30, 2020 showed B12 was 506, folate was 23.4 SPEP no abnormality, sed rate 33, ferritin 90 iron 89 TIBC 337, Patient denies any night sweats, denies any fever chills but about 5 to 7 pounds weight loss over the period of few months, denies any peripheral numbness, denies any abdominal fullness, patient states she has been taking B12 injection without any problem. Patient denies any shortness of breath or palpitation at rest, patient denies any seizure-like activity or antiseizure medication, denies any tsdj-gdc-bsizufo medication. Came for follow-up, denies any specific complaints except generalized weakness and fatigue but no nausea or vomiting, no diarrhea constipation, no melena or hematochezia, no jaundice, no hemoptysis hematemesis, no shortness of breath or palpitation Medications: Mirabegron ER (50 mg) Tablet SR 24 HR Oral daily, traMADol HCl (50 mg) Tablet Oral daily PRN Allergies: Christine and NSAIDs. Review of Systems: Review of Systems is not available for this patient. Vital Signs: Performed on Oct 29, 2020 12:36 Weight - 97.8 lbs (LOW) BSA - 0.00 sq.m BMI - 0.00 Temperature - 97.2 F (LOW) Pulse - 106 /min (HIGH) Respiration - 18 /min BP - 120/80 mm(hg) O2 Sat - 98 % Pain - 5 Fatigue - 7 Performance Status: 1 - No physically strenuous activity, but ambulatory and able to carry out light or sedentary work (e.g. office work, light house work). (ECOG) Physical Examination: ENMT - No mouth sores, no thrush, no jaundice, no cervical lymphadenopathy, Respiratory - Lungs are clear to auscultation, Cardiovascular - Regular rate and rhythm of heart, Abdomen - Soft, bowel sounds present, Extremities - No visible edema. Lab/Imaging: Most recent lab results are not available for this patient. Impression: Macrocytosis with normal hemoglobin, etiology could be multifactorial, considering her age underlying myelodysplasia cannot be ruled out other possibility could be B12/folate deficiency or copper deficiency or hypothyroidismOr medication Lab work-up done on July 30, 2020 showed B12 was 506, folate was 23.4, SPEP/immunofixation showed no monoclonal protein, sed rate mildly elevated at 33, creatinine 1.7 with normal LFTs, Osteoporosis, on alendronate since May 2015, History of arthritis, Plan: Discussed with patient regarding her labs white blood count 3.6 hemoglobin 10.1 hematocrit 31.3 platelets 160,000, MCV 107.2 Clinically, patient is doing reasonably well, denies any specific complaint except generalized weakness and fatigue, her follow-up lab work-up shows persistent mild/moderate anemia and now with mild leukopenia, her anemia work-up was inconclusive, clinically it appears, considering her age she may have underlying myelodysplasia, bone marrow was recommended but patient wants to wait and rather prefer observation, patient is on multivitamin and B12 supplement, she will return to clinic in 1 month with CBC, if there is a further drop in her hemoglobin, she may consider bone marrow evaluation otherwise, as per patient she would prefer observation alone, knowing the risk versus benefit from further evaluation with bone marrow testing Signed By: Jerrod Mark M.D. <<Signature on File>>
== END 2020-10-29 09:42 | disposition home or self-care (01) ==
LOC: ONCMED 09:45
PROVIDERS: PCP Family Medicine; Visit Provider Internal Medicine Hematology & Oncology
DX: D75.89 Other specified diseases of blood and blood-forming organs (principal); D51.9 Vitamin B12 deficiency anemia, unspecified; E61.0 Copper deficiency; E03.9 Hypothyroidism, unspecified; M81.0 Age-related osteoporosis without current pathological fracture; M19.90 Unspecified osteoarthritis, unspecified site; Z79.899 Other long term (current) drug therapy
CPT/HCPCS: 36415; 85025; 99214

== ENCOUNTER 2020-11-04 12:47 | Outpatient (CLI) | payer MEDICARE, SELFPAY ==
[2020-11-04 13:13] LABS: D Dimer 1.05 ug/mIFEU (0-0.59)
== END 2020-11-04 12:48 | disposition home or self-care (01) ==
LOC: LAB 12:50
PROVIDERS: PCP Family Medicine; Visit Provider Family Medicine
DX: R07.89 Other chest pain (principal)
CPT/HCPCS: 85378

== ENCOUNTER 2020-11-04 17:05 | Emergency (ER) | payer MEDICARE, SELFPAY ==
[2020-11-04 17:23] VITALS: BP 129/80; PULSE 92; RESP 22; TEMP 36.7; O2SAT 96; BMI 15.3
--- NOTE | 2020-11-04 17:36 | XRR_ITS ---
PROCEDURE INFORMATION: Exam: XR Chest Exam date and time: 11/04/2020 5:36 PM Age: 80 years old Clinical indication: Shortness of breath; Additional info: Chest pain; SOB TECHNIQUE: Imaging protocol: XR of the chest. Views: 1 view. Total images: 1 COMPARISON: CR XR chest 1V portable [id number] 07/27/2020 3:50 PM FINDINGS: Lungs: No visible active interstitial or alveolar airspace disease. COPD/chronic bronchitis. Pleural spaces: Unremarkable. No pleural effusion. No pneumothorax. Heart/Mediastinum: Cardiac structures and configuration within normal limits for age and stable. Vasculature: IVC filter. Bones/joints: Scoliosis. Previous vertebroplasties. XR/XR chest 1V portable [id number] IMPRESSION: Nonacute.
--- NOTE | 2020-11-04 17:37 | ECG_ITS ---
[facility] Test Date: 2020-11-04 Pat Name: Aida James Department: Room: Gender: Female Developmental Specialist: : 1940 Requested By: Ja Samano Order Number: [id number] Reading MD: INGRIS POWERS Measurements Intervals [place] Rate: 90 P: 64 IA: 201 QRS: 51 QRSD: 90 T: 65 QT: 346 QTc: 424 Interpretive Statements SINUS RHYTHM POSSIBLE RIGHT VENTRICULAR CONDUCTION DELAY [RSR (QR) IN V1/V2] Compared to ECG 07/27/2020 16:47:36 No significant changes Electronically Signed On 11-04-2020 18:47:19 CDT by INGRIS POWERS [email or web address]
--- NOTE | 2020-11-04 17:39 | W.ED.RECABL ---
Documented by User: Ja Chu MD 11/05/20 05:53 HPI - Recheck/Abnormal Lab/Rx General: Chief Complaint: Chest Pain Stated Complaint: Poss Blood Clot/Sent From Time Seen by Provider: 11/04/20 17:24 Source: patient Limitations: no limitations History of Present Illness: HPI narrative: Patient was sent here at the request of his [facility] clinic after abnormal D-dimer came back. D-dimer was 1.05 with the normal high normal was 0.59. Patient reportedly had chest pain on Wednesday and Wednesday at rest. She states that her chest pain was substernal. She had mild shortness of breath associated with the chest pain. Since Wednesday she has had no symptoms. She went to the clinic today for checkup and they advised patient to come the emergency room for evaluation of her chest pain and mildly elevated D-dimer. Patient denies any peripheral edema. She denies any chest pain or shortness of breath at this time. She had an EKG done in the clinic at 11:38 AM that showed normal sinus rhythm and normal EKG. Patient has seen an oncologist in the past for cancer work-up with nothing found. complaint: abnormal lab (Mildly elevated D-dimer.) Initial visit (ago): hour(s) (Today) Initial visit for: other (Chest pain) Symptoms since prior visit: no new symptoms (Patient is asymptomatic today) Associated symptoms: chest pain and shortness of breath Review of Systems Const: Denies: fever(s) or chills Eyes: Denies: change in vision ENMT: Denies: throat pain Card: Reports: chest pain Resp: Reports: dyspnea GI: Denies: abdominal pain, nausea or vomiting : Denies: flank pain Musc: Denies: neck pain or back pain Skin/Breast: Denies: rash or pruritus Neuro: Denies: headache(s) or numbness in extremities Psych: Denies: anxiety Don/Lymph: Denies: enlarged lymph nodes PFS ED PFSH: Medical History (Updated 11/04/20 @ 18:19 by Ja Chu MD) History of DVT of lower extremity 2010, Elvia filter placed, unknown if ever retrieved. Occurred in setting other acute medical issues. History of pleural empyema 2010, had temporary tunneled catheter for drainage Surgical History Previous back surgery unclear details Family History Mother , lived to 100s No problems noted. Social History Smoking and tobacco status: never smoked Alcohol intake: current Alcohol intake frequency: holidays/special occasions only Household members: family Marital status: / Physical Exam Const: COMMON NORMALS: no acute distress, patient oriented x3, no limitations and alert EXAM LIMITATIONS: altered mental status GENERAL APPEARANCE: cooperative NUTRITIONAL APPEARANCE: thin ORIENTATION/CONSCIOUSNESS: Yes awake, Yes oriented to person, Yes oriented to place and Yes oriented to time HENMT: COMMON NORMALS: normocephalic and atraumatic HEAD & SCALP: normocephalic and atraumatic FACE & SINUS: normal facial exam Eye: COMMON NORMALS: EOMs intact bilaterally Neck/C-Spine: COMMON NORMALS: full ROM, no lymphadenopathy, supple and no meningeal signs GENERAL: Yes normal visual inspection Lymph: LYMPHATIC: no lymphadenopathy noted Chest: COMMONS NORMALS: normal inspection of the chest and normal palpation of entire chest wall CHEST: No Ecchymosis present and No rash Resp: COMMON NORMALS: normal respiratory effort, No retractions, No use of accessory muscles and clear to auscultation bilaterally EFFORT & INSPECTION: No respiratory distress AUSCULTATION: clear to auscultation bilaterally Cardio: COMMON NORMALS: regular rate, regular rhythm and Peripheral pulses 2+ throughout JUGULAR VENOUS DISTENTION: no JVD RATE: regular rate RHYTHM: regular rhythm HEART SOUNDS: Murmur heart sound present (1/6 murmur over mitral valve) PERIPHERAL PULSES: Peripheral pulses 2+ throughout GI: COMMON NORMALS: Normal to inspection, nondistended, normoactive bowel sounds present, Soft to palpation, non-tender, No hepatosplenomegaly present, no masses and no bruits PALPATION: Yes Soft to palpation and Yes No hepatosplenomegaly present : COMMON NORMALS: Yes no CVA tenderness BLADDER/KIDNEY EXAM: Yes no CVA tenderness Back/Pelvis: COMMON NORMALS: no CVA tenderness Extremity: COMMON NORMALS: normal to inspection, full ROM and capillary refill normal Neuro: COMMON NORMALS: patient oriented x3, CN's II-XII intact bilaterally, moves all extremities, no focal motor deficits and no sensory deficits noted SENSORIUM/ORIENTATION: Yes alert, Yes oriented to person, Yes oriented to place and Yes oriented to time MENINGEAL SIGNS: Yes no meningeal signs Psych: COMMON NORMALS: mental status grossly normal, Normal thought process present, cooperative, normal affect, speech normal and activity/motor behavior normal SPEECH: Yes normal speech THOUGHT PROCESS: Normal thought process present Skin: COMMON NORMALS: no rashes or lesions noted, no wounds and no jaundice GENERAL SKIN EXAM: no rashes or lesions noted Course Vital Signs: Vital signs: Vital Signs Temperature 98.1 F 11/04/20 17:23 Pulse Rate 85 11/04/20 21:41 Respiratory Rate 22 H 11/04/20 21:41 Blood Pressure 148/90 11/04/20 21:41 Pulse Oximetry 95 11/04/20 21:41 MDM - Recheck/Abnormal Lab/Rx MDM Narrative: Medical decision making narrative: I have low suspicion for pulmonary embolus. She has no evidence of DVT. The mildly elevated D-dimer is nonspecific. Due to the elevated BUN and creatinine, patient is not a candidate for CT angiogram of the chest. 1945: Care transferred to Dr. Yap emergency room physician. Medical Records: Attestation: I reviewed the patient's medical records. Medical records narrative: Patient has a history of baseline creatinine around 2.0. She also has chronic anemia. Lab Data: Attestation: I reviewed the patient's lab results. Labs: Lab Results 11/04/20 11/04/20 11/04/20 Range/Units 17:50 17:50 17:50 WBC 3.7 L (4.0-10.0) 10^3/ uL RBC 2.75 L (4.1-5.3) 10^6/u L Hgb 9.6 L (11.5-15.3) g/dL Hct 29.5 L (37.0-47.0) % MCV 107.3 H (81-99) fL MCH 34.9 H (28.0-34.0) pg MCHC 32.5 (30.0-36.0) g/dL RDW 13.3 (12.1-15.1) % Plt Count 162 (130-400) 10^3/c mm MPV 10.6 H (7.4-10.4) fL Neut % (Auto) 60.9 % Lymph % (Auto) 27.4 % [place] % (Auto) 8.2 % Eos % (Auto) 2.4 % Baso % (Auto) 0.8 % Neut # (Auto) 2.24 (1.8-7.7) 10^3/u L Lymph # (Auto) 1.0 (0.8-4.8) 10^3/u L [place] # (Auto) 0.3 (0.2-0.9) 10^3/u L Eos # (Auto) 0.1 (0.0-0.8) 10^3/u L Baso # (Auto) 0.0 (0.0-0.1) 10^3/u L Nucleated RBC % (a uto) 0 % Nucleated RBCs # 0.0 /100WBC D-Dimer Cancelled Sodium Cancelled Potassium Cancelled Chloride Cancelled Carbon Dioxide Cancelled Anion Gap Cancelled BUN Cancelled Creatinine Cancelled GFR Calculation Cancelled Glucose Cancelled Calculated Osmolal ity Cancelled Calcium Cancelled Troponin T Baselin e Troponin T 120 Min quileute (0-10) ng/L Delta Troponin T (0-10) ABS# NT-Pro-B Natriuret Pep Cancelled 11/04/20 11/04/20 11/04/20 Range/Units 17:50 18:30 18:30 WBC (4.0-10.0) 10^3/ uL RBC (4.1-5.3) 10^6/u L Hgb (11.5-15.3) g/dL Hct (37.0-47.0) % MCV (81-99) fL MCH (28.0-34.0) pg MCHC (30.0-36.0) g/dL RDW (12.1-15.1) % Plt Count (130-400) 10^3/c mm MPV (7.4-10.4) fL Neut % (Auto) % Lymph % (Auto) % [place] % (Auto) % Eos % (Auto) % Baso % (Auto) % Neut # (Auto) (1.8-7.7) 10^3/u L Lymph # (Auto) (0.8-4.8) 10^3/u L [place] # (Auto) (0.2-0.9) 10^3/u L Eos # (Auto) (0.0-0.8) 10^3/u L Baso # (Auto) (0.0-0.1) 10^3/u L Nucleated RBC % (a uto) % Nucleated RBCs # /100WBC D-Dimer 1.49 H Sodium 137 Potassium 4.6 Chloride 99 Carbon Dioxide 28 Anion Gap 14.6 BUN 41 H Creatinine 2.3 H GFR Calculation Not Reportable Glucose 101 Calculated Osmolal ity 294 Calcium 9.0 Troponin T Baselin e Cancelled Troponin T 120 Min qu[place] (0-10) ng/L Delta Troponin T (0-10) ABS# NT-Pro-B Natriuret Pep 622 H 11/04/20 11/04/20 Range/Units 18:30 19:42 WBC (4.0-10.0) 10^3/ uL RBC (4.1-5.3) 10^6/u L Hgb (11.5-15.3) g/dL Hct (37.0-47.0) % MCV (81-99) fL MCH (28.0-34.0) pg MCHC (30.0-36.0) g/dL RDW (12.1-15.1) % Plt Count (130-400) 10^3/c mm MPV (7.4-10.4) fL Neut % (Auto) % Lymph % (Auto) % [place] % (Auto) % Eos % (Auto) % Baso % (Auto) % Neut # (Auto) (1.8-7.7) 10^3/u L Lymph # (Auto) (0.8-4.8) 10^3/u L [place] # (Auto) (0.2-0.9) 10^3/u L Eos # (Auto) (0.0-0.8) 10^3/u L Baso # (Auto) (0.0-0.1) 10^3/u L Nucleated RBC % (a uto) % Nucleated RBCs # /100WBC D-Dimer Sodium Potassium Chloride Carbon Dioxide Anion Gap BUN Creatinine GFR Calculation Glucose Calculated Osmolal ity Calcium Troponin T Baselin e 15 H Troponin T 120 Min quile[place] 14.36 H (0-10) ng/L Delta Troponin T -0.64 L (0-10) ABS# NT-Pro-B Natriuret Pep Imaging Data^: CXR: Attestation: I personally reviewed and interpreted this imaging study as follows: My impression: Chest x-ray portable shows scoliosis. Nothing acute. EKG Data^: EKG 1: Attestation: I personally reviewed and interpreted this EKG as follows: EKG interpretation date: 11/04/20 EKG interpretation time: 18:00 Prior EKG tracings: not available for review Interpretation: EKG shows normal sinus rhythm heart rate 90, borderline first-degree AV block, left atrial enlargement, normal ST segment, normal T waves, normal QT interval, borderline LVH, normal axis. Impression normal sinus rhythm with borderline first-degree AV block and borderline LVH. Discharge Plan Discharge Patient Disposition: Home Clinical Impression: Anemia of chronic disease Chest pain Qualifiers: Chest pain type: unspecified Qualified Code(s): R07.9 - Chest pain, unspecified Condition: Stable Prescriptions: No Action cyanocobalamin (vitamin B-12) 1,000 mcg/mL solution 1,000 mcg IM Q30D RF: 0 fluticasone propionate 50 mcg/actuation spray,suspension 1 spray INTRANASAL BID PRN (Reason: Allergy Symptoms) RF: 0 Unknown Name Of Pee Pill See Rx Instructions .ROUTE .COMPLEX RF: 0 aspirin 81 mg tablet,delayed release (DR/EC) 81 mg PO DAILY Qty: 30 RF: 0 Discharge Orders: Discharge ED (Routine); Ordered 11/04/20 Ordered By: Andressa Yap Referrals: Ace Bedolla MD [Primary Care Provider] - 1-3 days Discharge Diet: Advance as tolerated Discharge Activity: Resume usual activity Patient Instructions: Chest Pain (ED) Coding Level of Care Code ED [employer] Supervisor for Chg 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 Documented by User: Andressa Yap MD 11/04/20 21:19 HPI - Recheck/Abnormal Lab/Rx General: Chief Complaint: Chest Pain Stated Complaint: Poss Blood Clot/Sent From Time Seen by Provider: 11/04/20 17:24 [facility] ED PFSH: Medical History (Updated 11/04/20 @ 18:19 by Ja Chu MD) History of DVT of lower extremity 2010, Elvia filter placed, unknown if ever retrieved. Occurred in setting other acute medical issues. History of pleural empyema 2010, had temporary tunneled catheter for drainage Surgical History Previous back surgery unclear details Family History Mother , lived to 100s No problems noted. Social History Smoking and tobacco status: never smoked Alcohol intake: current Alcohol intake frequency: holidays/special occasions only Household members: family Marital status: / Course Vital Signs: Vital signs: Vital Signs Temperature 98.1 F 11/04/20 17:23 Pulse Rate 85 11/04/20 21:41 Respiratory Rate 22 H 11/04/20 21:41 Blood Pressure 148/90 11/04/20 21:41 Pulse Oximetry 95 11/04/20 21:41 MDM - Recheck/Abnormal Lab/Rx MDM Narrative: Medical decision making narrative: Patient presents here with chest pain is atypical in nature. She is pain-free here in troponins are normal. CT of her chest is normal as well. She is stable for discharge is to follow-up with PCP and return if worsening. Lab Data: Labs: Lab Results 11/04/20 11/04/20 11/04/20 Range/Units 17:50 17:50 17:50 WBC 3.7 L (4.0-10.0) 10^3/ uL RBC 2.75 L (4.1-5.3) 10^6/u L Hgb 9.6 L (11.5-15.3) g/dL Hct 29.5 L (37.0-47.0) % MCV 107.3 H (81-99) fL MCH 34.9 H (28.0-34.0) pg MCHC 32.5 (30.0-36.0) g/dL RDW 13.3 (12.1-15.1) % Plt Count 162 (130-400) 10^3/c mm MPV 10.6 H (7.4-10.4) fL Neut % (Auto) 60.9 % Lymph % (Auto) 27.4 % [place] % (Auto) 8.2 % Eos % (Auto) 2.4 % Baso % (Auto) 0.8 % Neut # (Auto) 2.24 (1.8-7.7) 10^3/u L Lymph # (Auto) 1.0 (0.8-4.8) 10^3/u L [place] # (Auto) 0.3 (0.2-0.9) 10^3/u L Eos # (Auto) 0.1 (0.0-0.8) 10^3/u L Baso # (Auto) 0.0 (0.0-0.1) 10^3/u L Nucleated RBC % (a uto) 0 % Nucleated RBCs # 0.0 /100WBC D-Dimer Cancelled Sodium Cancelled Potassium Cancelled Chloride Cancelled Carbon Dioxide Cancelled Anion Gap Cancelled BUN Cancelled Creatinine Cancelled GFR Calculation Cancelled Glucose Cancelled Calculated Osmolal ity Cancelled Calcium Cancelled Troponin T Baselin e Troponin T 120 Min [place] (0-10) ng/L Delta Troponin T (0-10) ABS# NT-Pro-B Natriuret Pep Cancelled 11/04/20 11/04/20 11/04/20 Range/Units 17:50 18:30 18:30 WBC (4.0-10.0) 10^3/ uL RBC (4.1-5.3) 10^6/u L Hgb (11.5-15.3) g/dL Hct (37.0-47.0) % MCV (81-99) fL MCH (28.0-34.0) pg MCHC (30.0-36.0) g/dL RDW (12.1-15.1) % Plt Count (130-400) 10^3/c mm MPV (7.4-10.4) fL Neut % (Auto) % Lymph % (Auto) % [place] % (Auto) % Eos % (Auto) % Baso % (Auto) % Neut # (Auto) (1.8-7.7) 10^3/u L Lymph # (Auto) (0.8-4.8) 10^3/u L [place] # (Auto) (0.2-0.9) 10^3/u L Eos # (Auto) (0.0-0.8) 10^3/u L Baso # (Auto) (0.0-0.1) 10^3/u L Nucleated RBC % (a uto) % Nucleated RBCs # /100WBC D-Dimer 1.49 H Sodium 137 Potassium 4.6 Chloride 99 Carbon Dioxide 28 Anion Gap 14.6 BUN 41 H Creatinine 2.3 H GFR Calculation Not Reportable Glucose 101 Calculated Osmolal ity 294 Calcium 9.0 Troponin T Baselin e Cancelled Troponin T 120 Min [place] (0-10) ng/L Delta Troponin T (0-10) ABS# NT-Pro-B Natriuret Pep 622 H 11/04/20 11/04/20 Range/Units 18:30 19:42 WBC (4.0-10.0) 10^3/ uL RBC (4.1-5.3) 10^6/u L Hgb (11.5-15.3) g/dL Hct (37.0-47.0) % MCV (81-99) fL MCH (28.0-34.0) pg MCHC (30.0-36.0) g/dL RDW (12.1-15.1) % Plt Count (130-400) 10^3/c mm MPV (7.4-10.4) fL Neut % (Auto) % Lymph % (Auto) % [place] % (Auto) % Eos % (Auto) % Baso % (Auto) % Neut # (Auto) (1.8-7.7) 10^3/u L Lymph # (Auto) (0.8-4.8) 10^3/u L [place] # (Auto) (0.2-0.9) 10^3/u L Eos # (Auto) (0.0-0.8) 10^3/u L Baso # (Auto) (0.0-0.1) 10^3/u L Nucleated RBC % (a uto) % Nucleated RBCs # /100WBC D-Dimer Sodium Potassium Chloride Carbon Dioxide Anion Gap BUN Creatinine GFR Calculation Glucose Calculated Osmolal ity Calcium Troponin T Baselin e 15 H Troponin T 120 Min qu[place] 14.36 H (0-10) ng/L Delta Troponin T -0.64 L (0-10) ABS# NT-Pro-B Natriuret Pep Imaging Data^: CT Chest: Attestation: I personally reviewed and interpreted this imaging study as follows: Radiologist's impression: [employer] [address] [place] [address] CT Scan Report Signed Patient: Aida James Unit #: [id number] : 1940 Age/Sex: 80 / F ADM Date: 11/04/20 Loc: ER Room/Bed: Attending Dr: Ordering Provider/Ordering MD: Andressa Yap MD Date of Service: 11/04/20 Procedure(s): CT angio chest PE prot [id number] Accession Number(s): [id number] Report Number: [id number] PROCEDURE INFORMATION: Exam: CTA Chest With Contrast Exam date and time: 11/04/2020 8:02 PM Age: 80 years old Clinical indication: Shortness of breath; Prior surgery; Surgery type: Back; Additional info: SOB TECHNIQUE: Imaging protocol: Computed tomographic angiography of the chest with contrast. 3D rendering (Not supervised by radiologist): MIP and/or 3D reconstructed images were created by the technologist. Total images: 789 Radiation optimization: All CT scans at this facility use at least one of these dose optimization techniques: automated exposure control; mA and/or kV adjustment per patient size (includes targeted exams where dose is matched to clinical indication); or iterative reconstruction. Contrast material: VISI 320; Contrast volume: 56 ml; Contrast route: INTRAVENOUS (IV); COMPARISON: CR (CHEST, ) 11/04/2020 5:49 PM RADIATION DOSE METRICS: Total DLP (mGy-cm): 350.34 FINDINGS: Pulmonary arteries: No visible evidence of pulmonary embolism/pulmonary arterial thrombus. Aorta: The thoracic aorta is nonaneurysmal. No visible intimal flap or dissection. Tortuous thoracic aorta which can be seen in hypertensive cardiovascular disease. Moderate arteriosclerosis. Mild intramural thrombus. Veins: IVC filter. Lungs: Bilateral apical parenchymal scarring. COPD/chronic bronchitis. Mild senile fibrosis. No visible active interstitial or alveolar airspace disease. Tiny 3 mm pulmonary nodule anterior segment left lower lobe (series 3, image 40). Minimal parenchymal scarring. Pleural spaces: No pneumothorax. No pleural effusion. Heart: No cardiomegaly. No visible pericardial effusion. Mild coronary artery disease. Lymph nodes: No visible active mediastinal or hilar lymphadenopathy. Gallbladder and bile ducts: Status post cholecystectomy. Bones/joints: Scoliotic curvature of the spine. Numerous antecedent appearing compression wedge fractures of the spine to include previous vertebroplasties at T10 and T11. Osteopenia/osteoporosis. 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 Soft tissues: Cachexia. CT/CT angio chest PE protcl [id number] IMPRESSION: 1. No visible evidence of pulmonary embolism/pulmonary arterial thrombus. 2. COPD/chronic bronchitis. 3. Tiny 3 mm pulmonary nodule anterior segment left lower lobe. For patients at low risk (minimal or absent history of smoking and of other known risk factors), no routine follow-up is indicated. For patients at high risk (history of smoking or of other known risk factors), consider optional CT Chest at 12 months. (Reference: Shawn). 4. Other nonurgent, nonemergent, chronic, postoperative, and age related findings as detailed in text above. EKG Data^: EKG 1: Attestation: I personally reviewed and interpreted this EKG as follows: EKG interpretation date: 11/04/20 EKG interpretation time: 19:59 Interpretation: nsr hr [address] or t wave abnormalities qrs 86 qtc 406 Discharge Plan Discharge Patient Disposition: Home Clinical Impression: Anemia of chronic disease Chest pain Qualifiers: Chest pain type: unspecified Qualified Code(s): R07.9 - Chest pain, unspecified Condition: Stable Prescriptions: No Action cyanocobalamin (vitamin B-12) 1,000 mcg/mL solution 1,000 mcg IM Q30D RF: 0 fluticasone propionate 50 mcg/actuation spray,suspension 1 spray INTRANASAL BID PRN (Reason: Allergy Symptoms) RF: 0 Unknown Name Of Pee Pill See Rx Instructions .ROUTE .COMPLEX RF: 0 aspirin 81 mg tablet,delayed release (DR/EC) 81 mg PO DAILY Qty: 30 RF: 0 Discharge Orders: Discharge ED (Routine); Ordered 11/04/20 Ordered By: Andressa Yap Referrals: Ace Bedolla MD [Primary Care Provider] - 1-3 days Discharge Diet: Advance as tolerated Discharge Activity: Resume usual activity Patient Instructions: Chest Pain (ED) Coding Level of Care Code ED [employer] Supervisor for Chg 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
[2020-11-04 18:03] LABS: Basophils % 0.8 %; Eosinophils # 0.1 10^3/uL (0.0-0.8); Eosinophils % 2.4 %; Hematocrit 29.5 % (37.0-47.0); Hemoglobin 9.6 g/dL (11.5-15.3); Lymphocytes % 27.4 %; Mean Corpuscular HGB Conc 32.5 g/dL (30.0-36.0); Mean Corpuscular Hemoglobin 34.9 pg (28.0-34.0); Mean Corpuscular Volume 107.3 fL (81-99); Mean Platelet Volume 10.6 fL (7.4-10.4); Monocytes # 0.3 10^3/uL (0.2-0.9); Monocytes % 8.2 %; Neutrophils # 2.24 10^3/uL (1.8-7.7); Neutrophils % 60.9 %; Nucleated Red Blood Cells % 0 %; Platelet Count 162 10^3/cmm (130-400); Red Blood Count 2.75 10^6/uL (4.1-5.3); Red Cell Distribution Width 13.3 % (12.1-15.1); White Blood Count 3.7 10^3/uL (4.0-10.0)
[2020-11-04 18:53] LABS: D Dimer 1.49 ug/mIFEU (0-0.59)
[2020-11-04 18:57] LABS: Troponin(5th) Baseline 15 ng/L (0-10)
[2020-11-04 19:00] VITALS: BP 149/78; PULSE 93; RESP 25; O2SAT 92
[2020-11-04 19:05] LABS: Anion Gap 14.6 (5-19); Blood Urea Nitrogen 41 mg/dL (8-23); Carbon Dioxide 28 mmol/L (22-29); Chloride 99 mmol/L (98-107); Glucose 101 mg/dL (65-115); NT Pro B Type Natriuretic Pept 622 pg/mL (0-450); Osmolality Calculated 294 mOsm/kg (285-295); Potassium 4.6 mmol/L (3.5-5.1); Sodium 137 mmol/L (136-145)
--- NOTE | 2020-11-04 19:37 | ECG_ITS ---
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
--- NOTE | 2020-11-04 19:49 | PC.NURSE ---
pt wishing to leave AMA due to time constraints. Pt initially requesting to sign AMA forms. Dr notified. consulted with pt who is agreable to stay for second trop.
[2020-11-04 19:54] VITALS: BP 148/90; PULSE 85; RESP 18; O2SAT 97
[2020-11-04 20:00] VITALS: BP 148/90; PULSE 85; RESP 22; O2SAT 98
--- NOTE | 2020-11-04 20:02 | CTR_ITS ---
PROCEDURE INFORMATION: Exam: CTA Chest With Contrast Exam date and time: 11/04/2020 8:02 PM Age: 80 years old Clinical indication: Shortness of breath; Prior surgery; Surgery type: Back; Additional info: SOB TECHNIQUE: Imaging protocol: Computed tomographic angiography of the chest with contrast. 3D rendering (Not supervised by radiologist): MIP and/or 3D reconstructed images were created by the technologist. Total images: 789 Radiation optimization: All CT scans at this facility use at least one of these dose optimization techniques: automated exposure control; mA and/or kV adjustment per patient size (includes targeted exams where dose is matched to clinical indication); or iterative reconstruction. Contrast material: VISI 320; Contrast volume: 56 ml; Contrast route: INTRAVENOUS (IV); COMPARISON: CR (CHEST, ) 11/04/2020 5:49 PM RADIATION DOSE METRICS: Total DLP (mGy-cm): 350.34 FINDINGS: Pulmonary arteries: No visible evidence of pulmonary embolism/pulmonary arterial thrombus. Aorta: The thoracic aorta is nonaneurysmal. No visible intimal flap or dissection. Tortuous thoracic aorta which can be seen in hypertensive cardiovascular disease. Moderate arteriosclerosis. Mild intramural thrombus. Veins: IVC filter. Lungs: Bilateral apical parenchymal scarring. COPD/chronic bronchitis. Mild senile fibrosis. No visible active interstitial or alveolar airspace disease. Tiny 3 mm pulmonary nodule anterior segment left lower lobe (series 3, image 40). Minimal parenchymal scarring. Pleural spaces: No pneumothorax. No pleural effusion. Heart: No cardiomegaly. No visible pericardial effusion. Mild coronary artery disease. Lymph nodes: No visible active mediastinal or hilar lymphadenopathy. Gallbladder and bile ducts: Status post cholecystectomy. Bones/joints: Scoliotic curvature of the spine. Numerous antecedent appearing compression wedge fractures of the spine to include previous vertebroplasties at T10 and T11. Osteopenia/osteoporosis. 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 Soft tissues: Cachexia. CT/CT angio chest PE protcl [id number] IMPRESSION: 1. No visible evidence of pulmonary embolism/pulmonary arterial thrombus. 2. COPD/chronic bronchitis. 3. Tiny 3 mm pulmonary nodule anterior segment left lower lobe. For patients at low risk (minimal or absent history of smoking and of other known risk factors), no routine follow-up is indicated. For patients at high risk (history of smoking or of other known risk factors), consider optional CT Chest at 12 months. (Reference: Shawn). 4. Other nonurgent, nonemergent, chronic, postoperative, and age related findings as detailed in text above. REFERENCES: Shawn Daugherty, et al. Guidelines for Management of Incidental Pulmonary Nodules Detected on CT Images: From the Fleischner Society 2017. Radiology. 2017;284(1):228-243. Radiation Dose CTDIVOL = (mGy): DLP = 350.34 (mGy-cm)
[2020-11-04 20:11] LABS: Troponin 5 2HR 14.36 ng/L (0-10)
[2020-11-04 20:18] LABS: Troponin 5 2HR Delta -0.64 ABS# (0-10)
[2020-11-04] MEDS: iodixanol 320 mg/mL 100mL Btl IV (20:37)
[2020-11-04] MEDS: sodium chloride 0.9% 1,000 ML 999 ML IV (20:53)
--- NOTE | 2020-11-04 20:54 | PC.NURSE ---
despite multiple attempts at re direction, pt insistent on removing hemodynamic monitoring. Dr notified
[2020-11-04 21:41] VITALS: BP 148/90; PULSE 85; RESP 22; O2SAT 95
== END 2020-11-04 22:27 | disposition home or self-care (01) ==
PROVIDERS: Family Medicine; Emergency Provider Emergency Medicine; PCP Family Medicine
DX: R07.9 Chest pain, unspecified (principal); D63.8 Anemia in other chronic diseases classified elsewhere; Z86.718 Personal history of other venous thrombosis and embolism; R07.89 Other chest pain
CPT/HCPCS: 71045; 71275; 80048; 83880; 84484; 85025; 85378; 93005; 96360; 99284; J7030; Q9967

== ENCOUNTER 2020-11-29 09:19 | Outpatient (CLI) | payer MEDICARE, SELFPAY ==
[2020-11-29 10:08] LABS: Basophils # 0.1 10^3/uL (0.0-0.1); Eosinophils # 0.3 10^3/uL (0.0-0.8); Eosinophils % 5.4 %; Hematocrit 34.5 % (37.0-47.0); Hemoglobin 10.9 g/dL (11.5-15.3); Lymphocytes # 1.5 10^3/uL (0.8-4.8); Lymphocytes % 24.6 %; Mean Corpuscular HGB Conc 31.6 g/dL (30.0-36.0); Mean Corpuscular Volume 110.9 fL (81-99); Mean Platelet Volume 9.8 fL (7.4-10.4); Monocytes # 0.3 10^3/uL (0.2-0.9); Monocytes % 5.4 %; Neutrophils # 3.83 10^3/uL (1.8-7.7); Neutrophils % 63.3 %; Nucleated Red Blood Cells % 0 %; Platelet Count 184 10^3/cmm (130-400); Red Blood Count 3.11 10^6/uL (4.1-5.3); Red Cell Distribution Width 13.8 % (12.1-15.1); White Blood Count 6.1 10^3/uL (4.0-10.0)
[2020-11-29 10:19] LABS: Alanine Aminotransferase 13 U/L (0-33); Albumin Level 4.1 g/dL (3.5-5.2); Alkaline Phosphatase 69 IU/L (35-105); Anion Gap 12.8 (5-19); Aspartate Amino Transferase 23 U/L (0-32); Blood Urea Nitrogen 27 mg/dL (8-23); Calcium 8.9 mg/dL (8.5-10.5); Carbon Dioxide 26 mmol/L (22-29); Chloride 104 mmol/L (98-107); Globulin 2.7 g/dL (1.3-4.6); Glucose 113 mg/dL (65-115); Osmolality Calculated 292 mOsm/kg (285-295); Potassium 4.8 mmol/L (3.5-5.1); Sodium 138 mmol/L (136-145); Total Bilirubin 0.4 mg/dL (0.15-1.2); Total Protein 6.8 g/dL (6.6-8.7)
--- NOTE | 2020-11-29 13:32 | ONC FU_ITS ---
Dr. Mark follow up note Patient: Aida James Unit #: [id number]: [id number] Dicatated By: Jerrod Mark M.D.Date of Visit:Nov 29, 2020 Onc Med Follow-up/Prog Note History of Present Illness: Ms. Aida James, is a 80-year-old female with a past medical history significant for chronic back pain, osteoporosis, diverticulitis, cervicogenic vertigo, breast augmentation, status post implant removal later on,, routine labs was found to have within normal hemoglobin and work-up done on July 30, 2020 showed B12 was 506, folate was 23.4 SPEP no abnormality, sed rate 33, ferritin 90 iron 89 TIBC 337, Patient denies any night sweats, denies any fever chills but about 5 to 7 pounds weight loss over the period of few months, denies any peripheral numbness, denies any abdominal fullness, patient states she has been taking B12 injection without any problem. Patient denies any shortness of breath or palpitation at rest, patient denies any seizure-like activity or antiseizure medication, denies any iuou-rug-nnymiyd medication. Came for follow-up, denies any specific complaints, no fevers or chills, no nausea or vomiting, no diarrhea or constipation, no shortness of breath or palpitation, no melena or hematochezia, overall feeling well, tolerating zppj-pkr-zocbcig B12/MVI supplement well Medications: Mirabegron ER (50 mg) Tablet SR 24 HR Oral daily, traMADol HCl (50 mg) Tablet Oral daily PRN Allergies: Christine and NSAIDs. Review of Systems: Review of Systems is not available for this patient. Vital Signs: Performed on Nov 29, 2020 10:19 Height - 65 in Weight - 100.2 lbs (HIGH) BSA - 1.47 sq.m BMI - 16.67 (LOW) Temperature - 97.5 F (LOW) Pulse - 86 /min Respiration - 18 /min BP - 124/87 mm(hg) O2 Sat - 96 % Pain - 0 Performance Status: 0 - Fully active, able to carry on all predisease activities without restrictions. (ECOG) Physical Examination: ENMT - No mouth sores, no thrush, no jaundice, Respiratory - Lungs are clear to auscultation, Cardiovascular - Regular rate and rhythm of heart, Abdomen - Soft, bowel sounds present, Extremities - No visible edema. Lab/Imaging: Most recent lab results are not available for this patient. Impression: Macrocytosis with normal hemoglobin, etiology could be multifactorial, considering her age underlying myelodysplasia cannot be ruled out other possibility could be B12/folate deficiency or copper deficiency or hypothyroidismOr medication Lab work-up done on July 30, 2020 showed B12 was 506, folate was 23.4, SPEP/immunofixation showed no monoclonal protein, sed rate mildly elevated at 33, creatinine 1.7 with normal LFTs, Osteoporosis, on alendronate since May 2015, History of arthritis, Plan: Discussed with patient regarding her labs white blood count 6.1 hemoglobin 10.9 g compared to 10.1 previously hematocrit 34.5 MCV 110.9 platelets 184,000 Clinically, patient doing well with no new signs symptoms, tolerating mgkn-waz-zwkbyny B12/MVI supplement well follow-up labs shows improvement in her hemoglobin but persistent macrocytosis and etiology of macrocytosis remained unclear could be, considering her age underlying myelodysplasia, bone marrow was recommended but patient would prefer observation unless there is a drop in her hemoglobin then she might consider. She will continue with multivitamin and B12 supplement and then return to clinic in 3 months with CBC Signed By: Jerrod Mark M.D. <<Signature on File>>
--- NOTE | 2020-11-29 13:33 | ONC FU_ITS ---
Dr. Mark follow up note Patient: Aida James Unit #: [id number]: [id number] Dicatated By: Jerrod Mark M.D.Date of Visit:Nov 29, 2020 Onc Med Follow-up/Prog Note History of Present Illness: Ms. Aida James, is a 80-year-old female with a past medical history significant for chronic back pain, osteoporosis, diverticulitis, cervicogenic vertigo, breast augmentation, status post implant removal later on,, routine labs was found to have within normal hemoglobin and work-up done on July 30, 2020 showed B12 was 506, folate was 23.4 SPEP no abnormality, sed rate 33, ferritin 90 iron 89 TIBC 337, Patient denies any night sweats, denies any fever chills but about 5 to 7 pounds weight loss over the period of few months, denies any peripheral numbness, denies any abdominal fullness, patient states she has been taking B12 injection without any problem. Patient denies any shortness of breath or palpitation at rest, patient denies any seizure-like activity or antiseizure medication, denies any pglz-iqf-kerzhey medication. Came for follow-up, denies any specific complaints, no fevers or chills, no nausea or vomiting, no diarrhea or constipation, no shortness of breath or palpitation, no melena or hematochezia, overall feeling well, tolerating larx-tst-ccjfmwp B12/MVI supplement well Medications: Mirabegron ER (50 mg) Tablet SR 24 HR Oral daily, traMADol HCl (50 mg) Tablet Oral daily PRN Allergies: Christine and NSAIDs. Review of Systems: Review of Systems is not available for this patient. Vital Signs: Performed on Nov 29, 2020 10:19 Height - 65 in Weight - 100.2 lbs (HIGH) BSA - 1.47 sq.m BMI - 16.67 (LOW) Temperature - 97.5 F (LOW) Pulse - 86 /min Respiration - 18 /min BP - 124/87 mm(hg) O2 Sat - 96 % Pain - 0 Performance Status: 0 - Fully active, able to carry on all predisease activities without restrictions. (ECOG) Physical Examination: ENMT - No mouth sores, no thrush, no jaundice, Respiratory - Lungs are clear to auscultation, Cardiovascular - Regular rate and rhythm of heart, Abdomen - Soft, bowel sounds present, Extremities - No visible edema. Lab/Imaging: Most recent lab results are not available for this patient. Impression: Macrocytosis with normal hemoglobin, etiology could be multifactorial, considering her age underlying myelodysplasia cannot be ruled out other possibility could be B12/folate deficiency or copper deficiency or hypothyroidismOr medication Lab work-up done on July 30, 2020 showed B12 was 506, folate was 23.4, SPEP/immunofixation showed no monoclonal protein, sed rate mildly elevated at 33, creatinine 1.7 with normal LFTs, Osteoporosis, on alendronate since May 2015, History of arthritis, Plan: Discussed with patient regarding her labs white blood count 6.1 hemoglobin 10.9 g compared to 10.1 previously hematocrit 34.5 MCV 110.9 platelets 184,000 Clinically, patient doing well with no new signs symptoms, tolerating amzu-kmp-cxirsqs B12/MVI supplement well follow-up labs shows improvement in her hemoglobin but persistent macrocytosis and etiology of macrocytosis remained unclear could be, considering her age underlying myelodysplasia, bone marrow was recommended but patient would prefer observation unless there is a drop in her hemoglobin then she might consider. She will continue with multivitamin and B12 supplement and then return to clinic in 3 months with CBC Signed By: Jerrod Mark M.D. <<Signature on File>>
== END 2020-11-29 09:20 | disposition home or self-care (01) ==
LOC: ONCMED 09:21
PROVIDERS: PCP Family Medicine; Visit Provider Internal Medicine Hematology & Oncology
DX: D75.89 Other specified diseases of blood and blood-forming organs (principal); M81.0 Age-related osteoporosis without current pathological fracture; M19.90 Unspecified osteoarthritis, unspecified site; Z79.899 Other long term (current) drug therapy
CPT/HCPCS: 36415; 80053; 85025; 99214

== ENCOUNTER 2021-01-02 15:00 | Outpatient (CLI) | payer MEDICARE, SELFPAY | END 2021-01-02 15:01 | disposition home or self-care (01) | LOC: SPT 01-31 13:21 | PROVIDERS: PCP Family Medicine; Visit Provider Family Medicine | DX: Z46.89 Encounter for fitting and adjustment of other specified devices (principal); S22.080D Wedge compression fracture of T11-T12 vertebra, subsequent encounter for fracture with routine healing; X58.XXXD Exposure to other specified factors, subsequent encounter | CPT/HCPCS: 97760; L0456 ==

== ENCOUNTER 2021-06-27 15:57 | Observation (INO) | payer MEDICARE, SELFPAY ==
[2021-06-27] VITALS (7 sets, daily range): BP systolic 130–162; BP diastolic 74–93; PULSE 77–114; RESP 16–22; TEMP 36.4–37.3; O2SAT 94–96; BMI 17.7; BMI 16.5
--- NOTE | 2021-06-27 16:27 | CTR_ITS ---
PROCEDURE INFORMATION: Exam: CT Thoracic Spine Without Contrast Exam date and time: 06/27/2021 4:27 PM Age: 81 years old Clinical indication: Injury or trauma; Blunt trauma (contusions or hematomas); Prior surgery; Surgery date: 6+ months; Surgery type: Kypho; Patient HX: C/O back pain after fall TECHNIQUE: Imaging protocol: Computed tomography images of the thoracic spine without contrast. Radiation optimization: All CT scans at this facility use at least one of these dose optimization techniques: automated exposure control; mA and/or kV adjustment per patient size (includes targeted exams where dose is matched to clinical indication); or iterative reconstruction. COMPARISON: CT thoracic spin wo con* [id number] 12/13/2019 9:44 AM RADIATION DOSE METRICS: Total DLP (mGy-cm): 777.97 FINDINGS: Vertebrae: Multilevel chronic appearing vertebral body compression fractures and vertebroplasty changes without significant retropulsion of bony fragments, similar to prior exam. T1-T2: No significant disc protrusion. No severe spinal canal stenosis. No significant neural foraminal narrowing. T2-T3: No significant disc protrusion. No severe spinal canal stenosis. No significant neural foraminal narrowing. T3-T4: No significant disc protrusion. No severe spinal canal stenosis. No significant neural foraminal narrowing. T4-T5: No significant disc protrusion. No severe spinal canal stenosis. No significant neural foraminal narrowing. T5-T6: No significant disc protrusion. No severe spinal canal stenosis. No significant neural foraminal narrowing. T6-T7: No significant disc protrusion. No severe spinal canal stenosis. No significant neural foraminal narrowing. T7-T8: No significant disc protrusion. No severe spinal canal stenosis. No significant neural foraminal narrowing. T8-T9: No significant disc protrusion. No severe spinal canal stenosis. No significant neural foraminal narrowing. T9-T10: No significant disc protrusion. No severe spinal canal stenosis. No significant neural foraminal narrowing. T10-T11: No significant disc protrusion. No severe spinal canal stenosis. No significant neural foraminal narrowing. T11-T12: No significant disc protrusion. No severe spinal canal stenosis. No significant neural foraminal narrowing. T12-L1: No significant disc protrusion. No severe spinal canal stenosis. No significant neural foraminal narrowing. Gallbladder and bile ducts: Cholecystectomy. Vasculature: Right lower lobe superior segment probable pleuroparenchymal scarring. Coronary artery atherosclerotic calcifications. CT/CT thoracic spin wo con* [id number] IMPRESSION: 1. Multilevel chronic appearing vertebral body compression fractures and vertebroplasty changes without significant retropulsion of bony fragments, similar to prior exam. 2. Right lower lobe superior segment probable pleuroparenchymal scarring. 3. Coronary artery atherosclerotic calcifications. 4. Cholecystectomy.
--- NOTE | 2021-06-27 16:27 | CTR_ITS ---
PROCEDURE INFORMATION: Exam: CT Lumbar Spine Without Contrast Exam date and time: 06/27/2021 4:27 PM Age: 81 years old Clinical indication: Injury or trauma; Blunt trauma (contusions or hematomas); Patient HX: C/O lbp after fall TECHNIQUE: Imaging protocol: Computed tomography images of the lumbar spine without contrast. Radiation optimization: All CT scans at this facility use at least one of these dose optimization techniques: automated exposure control; mA and/or kV adjustment per patient size (includes targeted exams where dose is matched to clinical indication); or iterative reconstruction. COMPARISON: CT lumbar spine wo con* [id number] 12/13/2019 9:48 AM RADIATION DOSE METRICS: Total DLP (mGy-cm): 750.82 FINDINGS: Tubes, catheters and devices: Inferior vena cava filter. Vertebrae: Stable multilevel vertebral body compression fractures without retropulsion of bony fragments, similar to prior exam. L1-L2: No significant disc protrusion. No severe spinal canal stenosis. No significant neural foraminal narrowing. L2-L3: No significant disc protrusion. No severe spinal canal stenosis. No significant neural foraminal narrowing. L3-L4: No significant disc protrusion. No severe spinal canal stenosis. No significant neural foraminal narrowing. L4-L5: No significant disc protrusion. No severe spinal canal stenosis. No significant neural foraminal narrowing. L5-S1: No significant disc protrusion. No severe spinal canal stenosis. No significant neural foraminal narrowing. Lungs: Emphysematous changes. Soft tissues: Unremarkable. CT/CT lumbar spine wo con* [id number] IMPRESSION: 1. Stable multilevel vertebral body compression fractures without retropulsion of bony fragments, similar to prior exam. 2. Emphysematous changes. 3. Inferior vena cava filter.
--- NOTE | 2021-06-27 16:27 | CTR_ITS ---
PROCEDURE INFORMATION: Exam: CT Head Without Contrast Exam date and time: 06/27/2021 4:27 PM Age: 81 years old Clinical indication: Injury or trauma; Fall; Blunt trauma (contusions or hematomas); Consciousness not specified TECHNIQUE: Imaging protocol: Computed tomography of the head without contrast. Radiation optimization: All CT scans at this facility use at least one of these dose optimization techniques: automated exposure control; mA and/or kV adjustment per patient size (includes targeted exams where dose is matched to clinical indication); or iterative reconstruction. COMPARISON: CR XR facial bones min 3V* [id number] 05/22/2019 10:40 AM RADIATION DOSE METRICS: Total DLP (mGy-cm): 878.27 FINDINGS: Brain: Moderate diffuse white matter disease likely reflecting chronic microvascular ischemic changes. Cerebral ventricles: No ventriculomegaly. Paranasal sinuses: Visualized sinuses are unremarkable. No fluid levels. Mastoid air cells: Visualized mastoid air cells are well aerated. Bones/joints: Unremarkable. No acute fracture. Soft tissues: Unremarkable. CT/CT head wo con* [id number] IMPRESSION: Negative for intracranial hemorrhage or mass effect
--- NOTE | 2021-06-27 16:27 | XRR_ITS ---
PROCEDURE INFORMATION: Exam: XR Pelvis Exam date and time: 06/27/2021 4:27 PM Age: 81 years old Clinical indication: Injury or trauma; Blunt trauma (contusions or hematomas); Does not apply; Patient HX: C/O fall on iced steps today. C/O pain low back and left hip. TECHNIQUE: Imaging protocol: XR pelvis. Views: 1 or 2 view. COMPARISON: CR XR hip RT 2-3V wo/w pel* [id number] 08/19/2020 11:31 AM FINDINGS: Bones/joints: Unremarkable. No acute fracture. Old healed right inferior pubic ramus fracture Soft tissues: Unremarkable. XR/XR pelvis 1-2V* [id number] IMPRESSION: No acute findings.
--- NOTE | 2021-06-27 16:27 | XRR_ITS ---
PROCEDURE INFORMATION: Exam: XR Chest Exam date and time: 06/27/2021 4:27 PM Age: 81 years old Clinical indication: Injury or trauma; Blunt trauma (contusions or hematomas); Patient HX: C/O fall on iced steps today. C/O pain low back and left hip TECHNIQUE: Imaging protocol: XR of the chest. Views: 1 view. COMPARISON: CR XR chest 1V portable [id number] 11/04/2020 5:49 PM FINDINGS: Lungs: Unremarkable. No consolidation. Pleural spaces: Unremarkable. No pleural effusion. No pneumothorax. Heart/Mediastinum: Unremarkable. No cardiomegaly. Vasculature: Inferior vena cava filter visualized Bones/joints: Unremarkable. XR/XR chest 1V portable [id number] IMPRESSION: No acute findings.
[2021-06-27] MEDS: morphine 4 mg/mL SDV 1 mL 2 MG IVP ×2 (16:51→21:23)
--- NOTE | 2021-06-27 17:12 | XRR_ITS ---
PROCEDURE INFORMATION: Exam: XR Left Hip Exam date and time: 06/27/2021 5:12 PM Age: 81 years old Clinical indication: Hip pain; Left hip; Additional info: L hip pain TECHNIQUE: Imaging protocol: XR Left hip. Views: 2 or 3 views hip with pelvis when performed. COMPARISON: CR (PELVIS, ) 06/27/2021 4:36 PM FINDINGS: Bones/joints: Unremarkable. No acute fracture. Soft tissues: Unremarkable. XR/XR hip LT 2-3V wo/w pel* [id number] IMPRESSION: No acute findings.
--- NOTE | 2021-06-27 17:39 | W.ED.GENADLT ---
HPI - General Adult General: Chief complaint: Fall Stated complaint: FALL Time Seen by Provider: 06/27/21 16:04 History of Present Illness: Patient is an 81-year-old female with a history of multiple compression fractures from the back, not currently on any anticoagulation who presents emergency room after an episode of mechanical fall. Patient was walking down a flight of stairs that was covered in ice earlier today when she fell forward. Patient complains of left hip pain and lower back pain. Cannot remember any LOC or head injury. Patient reports that she was outside for an hour eventually was able to go home. Patient tells me that she had difficulty walking since the fall due to her left hip. Patient has no other focal complaints. Onset: 3 hrs ago Duration:once Location:[place] Severity:moderate/severe Associated symptoms: Deny chest pain, dyspnea, nausea, rash, palpitations or vomiting Review of Systems Const: Denies: fever(s) or chills Eyes: Denies: change in vision ENMT: Denies: mouth pain Card: Denies: chest pain or palpitations Resp: Denies: dyspnea or non-productive cough GI: Denies: abdominal pain, nausea, vomiting or diarrhea : Denies: dysuria Musc: Reports: extremity pain (+L hip pain) Skin/Breast: Denies: rash or new lesions Neuro: Denies: weakness in extremities Psych: Reports: other (Normal mood) Don/Lymph: Denies: easy bruising [facility] ED PFSH: Medical History (Updated 06/28/21 @ 00:27 by Jonathan Nolan MD) History of DVT of lower extremity 2010, [place] filter placed, unknown if ever retrieved. Occurred in setting other acute medical issues. History of pleural empyema 2010, had temporary tunneled catheter for drainage Surgical History Previous back surgery unclear details Family History Mother , lived to 100s No problems noted. Social History Smoking and tobacco status: never smoked Alcohol intake: current Alcohol intake frequency: holidays/special occasions only Household members: family Marital status: / Physical Exam Const: COMMON NORMALS: alert HENMT: COMMON NORMALS: atraumatic HEAD & SCALP: atraumatic MOUTH: moist mucous membranes not abnormal Eye: COMMON NORMALS: EOMs intact bilaterally and conjunctivae normal CONJUNCTIVA: Yes conjunctivae normal Neck/C-Spine: COMMON NORMALS: full ROM and supple Resp: COMMON NORMALS: normal respiratory effort and clear to auscultation bilaterally AUSCULTATION: clear to auscultation bilaterally Cardio: COMMON NORMALS: regular rate RATE: regular rate GI: COMMON NORMALS: Soft to palpation and non-tender PALPATION: Yes Soft to palpation Extremity: COMMON NORMALS: full ROM OTHER: +L hip mild pain to right ROM, relative left hip intact., Neurovascular exam of the left lower extremity intact. Neuro: SENSORIUM/ORIENTATION: Yes alert MOTOR EXAM: No Abnormal motor strength present and Other motor observations present (no focal motor deficits) Psych: COMMON NORMALS: speech normal SPEECH: Yes normal speech MOOD & AFFECT: Yes euthymic mood Course Vital Signs: Vital signs: Vital Signs Temperature 98.3 F 06/29/21 13:53 Pulse Rate 85 06/29/21 13:53 Respiratory Rate 12 06/29/21 13:53 Blood Pressure 147/77 06/29/21 13:53 Pulse Oximetry 90 06/29/21 13:53 [facility] - General Adult Medical Decision Making Patient is an 81-year-old female who presents the emergency room after an episode of fall. Suspect mechanical fall earlier today. Imaging negative for any acute findings. Per conversation with patient's [id number]-zin Sylvia, patient is not able to take care of herself. Patient has nobody to take care of herself when she goes home. Patient walks with an unsteady gait. At present time, patient's care proxy is her daughter, Araceli. Discussed case with Araceli who recommended the patient stay in the hospital and possibly getting assigned for home help and shelter placement. Disposition: admission Lab Data : 06/28/21 06:10 06/28/21 06:10 Radiology Impressions Chest X-Ray 06/27/21 16:27 IMPRESSION: No acute findings. Head CT 06/27/21 16:27 IMPRESSION: Negative for intracranial hemorrhage or mass effect Lumbar Spine CT 06/27/21 16:27 IMPRESSION: 1. Stable multilevel vertebral body compression fractures without retropulsion of bony fragments, similar to prior exam. 2. Emphysematous changes. 3. Inferior vena cava filter. Pelvis X-Ray 06/27/21 16:27 IMPRESSION: No acute findings. Thoracic Spine CT 06/27/21 16:27 IMPRESSION: 1. Multilevel chronic appearing vertebral body compression fractures and vertebroplasty changes without significant retropulsion of bony fragments, similar to prior exam. 2. Right lower lobe superior segment probable pleuroparenchymal scarring. 3. Coronary artery atherosclerotic calcifications. 4. Cholecystectomy. Hip/Pelvis X-Ray 06/27/21 17:12 IMPRESSION: No acute findings. Laboratory Results WBC 15.9 10^3/uL (4.0-10.0) H 06/27/21 16:50 RBC 3.24 10^6/uL (4.1-5.3) L 06/27/21 16:50 Hgb 10.9 g/dL (11.5-15.3) L 06/27/21 16:50 Hct 34.7 % (37.0-47.0) L 06/27/21 16:50 MCV 107.1 fl (81-99) H 06/27/21 16:50 MCH 33.6 pg (28.0-34.0) 06/27/21 16:50 MCHC 31.4 g/dL (30.0-36.0) 06/27/21 16:50 RDW 12.7 % (12.1-15.1) 06/27/21 16:50 Plt Count 222 10^3/cmm (130-400) 06/27/21 16:50 MPV 11.1 fL (7.4-10.4) H 06/27/21 16:50 Neut % (Auto) 87.2 % 06/27/21 16:50 Lymph % (Auto) 6.2 % 06/27/21 16:50 [place] % (Auto) 5.5 % 06/27/21 16:50 Eos % (Auto) 0.1 % 06/27/21 16:50 Baso % (Auto) 0.4 % 06/27/21 16:50 Neut # (Auto) 13.89 10^3/uL (1.8-7.7) H 06/27/21 16:50 Lymph # (Auto) 1.0 10^3/uL (0.8-4.8) 06/27/21 16:50 [place] # (Auto) 0.9 10^3/uL (0.2-0.9) 06/27/21 16:50 Eos # (Auto) 0.0 10^3/uL (0.0-0.8) 06/27/21 16:50 Baso # (Auto) 0.1 10^3/uL (0.0-0.1) 06/27/21 16:50 Nucleated RBC % (auto) 0 % 06/27/21 16:50 Nucleated RBCs # 0.0 /100WBC 06/27/21 16:50 Sodium 136 mmol/L (136-145) 06/27/21 16:50 Potassium 5.0 mmol/L (3.5-5.1) 06/27/21 16:50 Chloride 101 mmol/L (98-107) 06/27/21 16:50 Carbon Dioxide 24 mmol/L (22-29) 06/27/21 16:50 Anion Gap 16.0 (5-19) 06/27/21 16:50 BUN 25 mg/dL (8-23) H 06/27/21 16:50 Creatinine 1.6 mg/dL (0.5-0.9) H 06/27/21 16:50 GFR Calculation Not Reportable 06/27/21 16:50 Glucose 89 mg/dL (65-115) 06/27/21 16:50 Calculated Osmolality 286 mOsm/kg (285-295) 06/27/21 16:50 Calcium 10.0 mg/dL (8.5-10.5) 06/27/21 16:50 Imaging Data Other Imaging: Radiologist's impression: [address] [address] XRay Report Signed Patient: Aida James Unit #: [id number] : 1940 Age/Sex: 81 / F ADM Date: 06/27/21 Loc: ER Room/Bed: Attending Dr: Ordering Provider/Ordering MD: Sage Mustafa MD Date of Service: 06/27/21 Procedure(s): XR hip LT 2-3V wo/w pel* [id number] Accession Number(s): [id number] Report Number: [id number] PROCEDURE INFORMATION: Exam: XR Left Hip Exam date and time: 06/27/2021 5:12 PM Age: 81 years old Clinical indication: Hip pain; Left hip; Additional info: L hip pain TECHNIQUE: Imaging protocol: XR Left hip. Views: 2 or 3 views hip with pelvis when performed. COMPARISON: CR (PELVIS, ) 06/27/2021 4:36 PM FINDINGS: Bones/joints: Unremarkable. No acute fracture. Soft tissues: Unremarkable. XR/XR hip LT 2-3V wo/w pel* [id number] IMPRESSION: No acute findings. ? Dictated By: Dima Llanes MD Signed By: Dima Llanes MD Signed Date/Time: 06/27/21 173 DD/ [address] [address] [address] Scan Report Signed Patient: Aida James Unit #: [id number] : 1940 Age/Sex: 81 / F ADM Date: 06/27/21 Loc: ER Room/Bed: Attending Dr: Ordering Provider/Ordering MD: Sage Mustafa MD Date of Service: 06/27/21 Procedure(s): CT thoracic spin wo con* [id number] Accession Number(s): [id number] Report Number: [id number] PROCEDURE INFORMATION: Exam: CT Thoracic Spine Without Contrast Exam date and time: 06/27/2021 4:27 PM Age: 81 years old Clinical indication: Injury or trauma; Blunt trauma (contusions or hematomas); Prior surgery; Surgery date: 6+ months; Surgery type: Kypho; Patient HX: C/O back pain after fall TECHNIQUE: Imaging protocol: Computed tomography images of the thoracic spine without contrast. Radiation optimization: All CT scans at this facility use at least one of these dose optimization techniques: automated exposure control; mA and/or kV adjustment per patient size (includes targeted exams where dose is matched to clinical indication); or iterative reconstruction. COMPARISON: CT thoracic spin wo con* [id number] 12/13/2019 9:44 AM RADIATION DOSE METRICS: Total DLP (mGy-cm): 777.97 FINDINGS: Vertebrae: Multilevel chronic appearing vertebral body compression fractures and vertebroplasty changes without significant retropulsion of bony fragments, similar to prior exam. T1-T2: No significant disc protrusion. No severe spinal canal stenosis. No significant neural foraminal narrowing.? T2-T3: No significant disc protrusion. No severe spinal canal stenosis. No significant neural foraminal narrowing.? T3-T4: No significant disc protrusion. No severe spinal canal stenosis. No significant neural foraminal narrowing.? T4-T5: No significant disc protrusion. No severe spinal canal stenosis. No significant neural foraminal narrowing. T5-T6: No significant disc protrusion. No severe spinal canal stenosis. No significant neural foraminal narrowing. T6-T7: No significant disc protrusion. No severe spinal canal stenosis. No significant neural foraminal narrowing. T7-T8: No significant disc protrusion. No severe spinal canal stenosis. No significant neural foraminal narrowing.? T8-T9: No significant disc protrusion. No severe spinal canal stenosis. No significant neural foraminal narrowing.? T9-T10: No significant disc protrusion. No severe spinal canal stenosis. No significant neural foraminal narrowing.? T10-T11: No significant disc protrusion. No severe spinal canal stenosis. No significant neural foraminal narrowing. T11-T12: No significant disc protrusion. No severe spinal canal stenosis. No significant neural foraminal narrowing. T12-L1: No significant disc protrusion. No severe spinal canal stenosis. No significant neural foraminal narrowing. Gallbladder and bile ducts: Cholecystectomy. Vasculature: Right lower lobe superior segment probable pleuroparenchymal scarring. Coronary artery atherosclerotic calcifications. CT/CT thoracic spin wo con* [id number] IMPRESSION: 1. Multilevel chronic appearing vertebral body compression fractures and vertebroplasty changes without significant retropulsion of bony fragments, similar to prior exam. 2. Right lower lobe superior segment probable pleuroparenchymal scarring. 3. Coronary artery atherosclerotic calcifications. 4. Cholecystectomy. ? Dictated By: Dima Llanes MD Signed By: Dima Llanes MD Signed Date/Time: 06/27/211718 DD/ [address] [address] XRay Report Signed Patient: Aida James Unit #: [id number] : 1940 Age/Sex: 81 / F ADM Date: 06/27/21 Loc: ER Room/Bed: Attending Dr: Ordering Provider/Ordering MD: Sage Mustafa MD Date of Service: 06/27/21 Procedure(s): XR pelvis 1-2V* [id number] Accession Number(s): [id number] Report Number: [id number] PROCEDURE INFORMATION: Exam: XR Pelvis Exam date and time: 06/27/2021 4:27 PM Age: 81 years old Clinical indication: Injury or trauma; Blunt trauma (contusions or hematomas); Does not apply; Patient HX: C/O fall on iced steps today. C/O pain low back and left hip. TECHNIQUE: Imaging protocol: XR pelvis. Views: 1 or 2 view. COMPARISON: CR XR hip RT 2-3V wo/w pel* [id number] 08/19/2020 11:31 AM FINDINGS: Bones/joints: Unremarkable. No acute fracture.? Old healed right inferior pubic ramus fracture Soft tissues: Unremarkable. XR/XR pelvis 1-2V* [id number] IMPRESSION: No acute findings. ? Dictated By: Dima Llanes MD Signed By: Dima Llanes MD Signed Date/Time: 06/27/21 165 DD/ [address]27 [place] [address] CT Scan Report Signed Patient: Aida James Unit #: [id number] : 1940 Age/Sex: 81 / F ADM Date: 06/27/21 Loc: ER Room/Bed: Attending Dr: Ordering Provider/Ordering MD: Sage Mustafa MD Date of Service: 06/27/21 Procedure(s): CT lumbar spine wo con* [id number] Accession Number(s): [id number] Report Number: [id number] PROCEDURE INFORMATION: Exam: CT Lumbar Spine Without Contrast Exam date and time: 06/27/2021 4:27 PM Age: 81 years old Clinical indication: Injury or trauma; Blunt trauma (contusions or hematomas); Patient HX: C/O lbp after fall TECHNIQUE: Imaging protocol: Computed tomography images of the lumbar spine without contrast. Radiation optimization: All CT scans at this facility use at least one of these dose optimization techniques: automated exposure control; mA and/or kV adjustment per patient size (includes targeted exams where dose is matched to clinical indication); or iterative reconstruction. COMPARISON: CT lumbar spine wo con* [id number] 12/13/2019 9:48 AM RADIATION DOSE METRICS: Total DLP (mGy-cm): 750.82 FINDINGS: Tubes, catheters and devices: Inferior vena cava filter. Vertebrae: Stable multilevel vertebral body compression fractures without retropulsion of bony fragments, similar to prior exam. L1-L2: No significant disc protrusion. No severe spinal canal stenosis. No significant neural foraminal narrowing. L2-L3: No significant disc protrusion. No severe spinal canal stenosis. No significant neural foraminal narrowing. L3-L4: No significant disc protrusion. No severe spinal canal stenosis. No significant neural foraminal narrowing. L4-L5: No significant disc protrusion. No severe spinal canal stenosis. No significant neural foraminal narrowing. L5-S1: No significant disc protrusion. No severe spinal canal stenosis. No significant neural foraminal narrowing. Lungs: Emphysematous changes. Soft tissues: Unremarkable. CT/CT lumbar spine wo con* [id number] IMPRESSION: 1. Stable multilevel vertebral body compression fractures without retropulsion of bony fragments, similar to prior exam. 2. Emphysematous changes. 3. Inferior vena cava filter. ? Dictated By: Dima Llanes MD Signed By: Dima Llanes MD Signed Date/Time: 06/27/21 1720 DD/ [address] [address] [address] Scan Report Signed Patient: Aida James Unit #: [id number] : 1940 Age/Sex: 81 / F ADM Date: 06/27/21 Loc: ER Room/Bed: Attending Dr: Ordering Provider/Ordering MD: Sage Mustafa MD Date of Service: 06/27/21 Procedure(s): CT head wo con* [id number] Accession Number(s): [id number] Report Number: [id number] PROCEDURE INFORMATION: Exam: CT Head Without Contrast Exam date and time: 06/27/2021 4:27 PM Age: 81 years old Clinical indication: Injury or trauma; Fall; Blunt trauma (contusions or hematomas); Consciousness not specified TECHNIQUE: Imaging protocol: Computed tomography of the head without contrast. Radiation optimization: All CT scans at this facility use at least one of these dose optimization techniques: automated exposure control; mA and/or kV adjustment per patient size (includes targeted exams where dose is matched to clinical indication); or iterative reconstruction. COMPARISON: CR XR facial bones min 3V* [id number] 05/22/2019 10:40 AM RADIATION DOSE METRICS: Total DLP (mGy-cm): 878.27 FINDINGS: Brain: Moderate diffuse white matter disease likely reflecting chronic microvascular ischemic changes. Cerebral ventricles: No ventriculomegaly. Paranasal sinuses: Visualized sinuses are unremarkable. No fluid levels. Mastoid air cells: Visualized mastoid air cells are well aerated. Bones/joints: Unremarkable. No acute fracture. Soft tissues: Unremarkable. CT/CT head wo con* [id number] IMPRESSION: Negative for intracranial hemorrhage or mass effect ? Dictated By: Dima Llanes MD Signed By: Dima Llanes MD Signed Date/Time: 06/27/21 1706 DD/ [address] [address] XRay Report Signed Patient: Aida James Unit #: [id number] : 1940 Age/Sex: 81 / F ADM Date: 06/27/21 Loc: ER Room/Bed: Attending Dr: Ordering Provider/Ordering MD: Sage Mustafa MD Date of Service: 06/27/21 Procedure(s): XR chest 1V portable [id number] Accession Number(s): [id number] Report Number: [id number] PROCEDURE INFORMATION: Exam: XR Chest Exam date and time: 06/27/2021 4:27 PM Age: 81 years old Clinical indication: Injury or trauma; Blunt trauma (contusions or hematomas); Patient HX: C/O fall on iced steps today. C/O pain low back and left hip TECHNIQUE: Imaging protocol: XR of the chest. Views: 1 view. COMPARISON: CR XR chest 1V portable [id number] 11/04/2020 5:49 PM FINDINGS: Lungs: Unremarkable. No consolidation. Pleural spaces: Unremarkable. No pleural effusion. No pneumothorax. Heart/Mediastinum: Unremarkable. No cardiomegaly. Vasculature: Inferior vena cava filter visualized Bones/joints: Unremarkable. XR/XR chest 1V portable [id number] IMPRESSION: No acute findings. ? Dictated By: Dima Llanes MD Signed By: Dima Llanes MD Signed Date/Time: 06/27/21 165 DD/ 1627 Discharge Plan Discharge Patient Disposition: Admitted As Inpatient Admit Provider: Jonathan Nolan Clinical Impression: Fall, Inability to walk Condition: Stable Discharge Activity: Increase activity as tolerated Coding Level of Care Code ED Lead Slot Technician for Chg 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
[2021-06-27 19:05] LABS: Basophils # 0.1 10^3/uL (0.0-0.1); Basophils % 0.4 %; Eosinophils % 0.1 %; Hematocrit 34.7 % (37.0-47.0); Hemoglobin 10.9 g/dL (11.5-15.3); Lymphocytes % 6.2 %; Mean Corpuscular HGB Conc 31.4 g/dL (30.0-36.0); Mean Corpuscular Hemoglobin 33.6 pg (28.0-34.0); Mean Corpuscular Volume 107.1 fl (81-99); Mean Platelet Volume 11.1 fL (7.4-10.4); Monocytes # 0.9 10^3/uL (0.2-0.9); Monocytes % 5.5 %; Neutrophils # 13.89 10^3/uL (1.8-7.7); Neutrophils % 87.2 %; Nucleated Red Blood Cells % 0 %; Platelet Count 222 10^3/cmm (130-400); Red Blood Count 3.24 10^6/uL (4.1-5.3); Red Cell Distribution Width 12.7 % (12.1-15.1); White Blood Count 15.9 10^3/uL (4.0-10.0)
[2021-06-27 19:18] LABS: Blood Urea Nitrogen 25 mg/dL (8-23); Carbon Dioxide 24 mmol/L (22-29); Chloride 101 mmol/L (98-107); Glucose 89 mg/dL (65-115); Osmolality Calculated 286 mOsm/kg (285-295); Sodium 136 mmol/L (136-145)
--- NOTE | 2021-06-27 22:11 | P.HP_ITS ---
Providers/Chief Complaint Admitting Physician: Jonathan Nolan Primary Care Provider: Ace Bedolla MD Chief Complaint: FALL History of Present Illness 81-year-old female with a past medical history significant for DVT in 2010, osteoporosis, Chronic stage 3 kidney disease with a baseline creatinine around 1.6, cervicogenic vertigo, macrocytosis with normal hemoglobin and chronic back pain with recent T12 compression fracture s/p kyphophasty/TLSO brace 01/2021 who is presenting to ER after she sustained a fall. No reported loss of consciousness. Patient stated she has a brace at home still hwoever does not routinely wear. Noted ongoing back pain. Laboratory workup showed a WBC of 15.9, hemoglobin 10.9, hematocrit 34.7 and platelet count of 222. Sodium 136, potassium 5.0, chloride 101, bicarb 24, BUN 25 and creatinine of 1.6. Imaging studies included a chest pelvic/hip X-ray which did not show any acute abnormalities. A head CT which did not show any acute intracranial abnormality. CT of thoracic spine which showed chronic multi-level vertebral body compression fracture with prior vertebroplasty changes. Similar finding on CT lumbar spine. Patient was living at home with daughter and son in law who are currenlty away to [place]. Plan to return home tomorrow. Patient not able to care for self until they return.For this reason patient was admitted to the hospital overnight and arrangement of home care. Review of Systems Narrative: Comprehensive review of systems found to be negative other than pertinent findings noted in HPI Medications/Allergies Home Medications Medication Instructions Recorded Confirmed Last Taken Type aspirin 81 mg tablet,delayed 81 mg PO DAILY #30 tab 07/27/20 06/27/21 06/26/21 Rx release cyanocobalamin (vitamin B-12) 1,000 mcg IM Q30D 07/27/20 06/27/21 07/07/20 History 1,000 mcg/mL injection solution fluticasone propionate 50 1 spray INTRANASAL BID PRN 07/27/20 06/27/21 Unknown History mcg/actuation nasal spray,suspension Allergies Allergy/AdvReac Type Severity Reaction Status Date / Time meek Allergy Mild ALGY-Difficulty Verified 01/07/21 14:03 Breathing PFSH Acute PFSH: Medical History (Updated 06/28/21 @ 00:27 by Jonathan Nolan MD) History of DVT of lower extremity 2010, [place] filter placed, unknown if ever retrieved. Occurred in setting other acute medical issues. History of pleural empyema 2010, had temporary tunneled catheter for drainage Surgical History Previous back surgery unclear details Family History Mother , lived to 100s No problems noted. Social History Smoking and tobacco status: never smoked Alcohol intake: current Alcohol intake frequency: holidays/special occasions only Household members: family Marital status: / Vitals/I&O/Wt Last Vital Signs Temp 97.5 F L 06/27/21 16:20 Pulse 77 06/27/21 20:24 Resp 18 06/27/21 21:23 BP 156/90 06/27/21 20:24 Pulse Ox 95 06/27/21 20:24 Weight last 48 hrs Weight 49.895 kg Physical Exam Narrative: General-alert awake c/o back pain HEENT-grossly unremarkable Chest-clear to auscultation bilaterally CVS-regular rate rhythm no obvious murmurs Abdomen-soft nontender nondistended Extremities-no edema Data : 06/27/21 16:50 06/27/21 16:50 A&P Assessment and plan (1) Fall: Mechanical in nature Hx of multiple vertibroplasty CT thoracic/lumbar spine - no acute fx / ch. changes noted PT consult Fall precautions Status: Acute (2) Back pain: Pain control Status: Acute (3) Chronic kidney disease, stage 3: Creatinine 1.6 Appears to be at baseline Repeat labs in am Status: Acute Plan Cm/SW consult for home care PT/OT consultation Review and resume meds in am Attestations Medical Necessity Statement*: Anticipate less than 2 midnight stay in hospital for eval and treatment Time Spent in Patient Care: Greater than 35 minutes (>than 50% of time spent in counselling and/or direct pt care on unit) . Coding Level of Care Code Acute Educational Advisor for Chg Fwd Diagnoses Fall W19.XXXA Back pain M54.9 Chronic kidney disease, stage 3 N18.30
[2021-06-27] MEDS: heparin 5,000 unit/mL INJ 1 mL 5000 UNIT SUBCUT (22:45)
[2021-06-27] MEDS: HYDROcodone-acetaminophen 5-325 mg Tablet 1 TAB PO (22:45)
[2021-06-28] VITALS: BP 122/64; PULSE 98; RESP 19; TEMP 37.4; O2SAT 94
[2021-06-28 04:00] VITALS: BP 147/78; PULSE 89; PULSE 91; RESP 17; RESP 20; TEMP 37.1; O2SAT 1; O2SAT 93
[2021-06-28 05:18] LABS: Bilirubin Urine Neg (Negative); Blood Urine 2+ (Negative); Glucose Urine UA Norm (Normal); Ketones Urine Negative (Negative); Nitrate Urine Negative (Negative); Protein Urine Neg (Negative); Urine Appearance Clear (CLEAR); Urine Color Yellow (Yellow); Urobilinogen Urine Norm (Negative); pH Urine 5 (5-7)
[2021-06-28 05:19] LABS: Add Urine Microscopic? YES; Leukocyte Esterase Urine 2+ (Negative)
[2021-06-28 05:20] LABS: Add Urine Culture? No; Bacteria Urine 1+ /hpf; Squamous Epithelial Cell Urine 0-4 /hpf (0-5)
[2021-06-28] MEDS: heparin 5,000 unit/mL INJ 1 mL 5000 UNIT SUBCUT (06:10)
[2021-06-28] MEDS: HYDROcodone-acetaminophen 5-325 mg Tablet 1 TAB PO (06:13)
[2021-06-28 06:22] LABS: Basophils % 0.5 %; Eosinophils # 0.1 10^3/uL (0.0-0.8); Eosinophils % 1.7 %; Hemoglobin 10.4 g/dL (11.5-15.3); Lymphocytes # 1.2 10^3/uL (0.8-4.8); Lymphocytes % 15.9 %; Mean Corpuscular HGB Conc 32.5 g/dL (30.0-36.0); Mean Corpuscular Hemoglobin 34.8 pg (28.0-34.0); Mean Platelet Volume 9.7 fL (7.4-10.4); Monocytes # 0.5 10^3/uL (0.2-0.9); Monocytes % 6.1 %; Neutrophils # 5.77 10^3/uL (1.8-7.7); Neutrophils % 75.4 %; Nucleated Red Blood Cells % 0 %; Platelet Count 194 10^3/cmm (130-400); Red Blood Count 2.99 10^6/uL (4.1-5.3); White Blood Count 7.7 10^3/uL (4.0-10.0)
[2021-06-28 06:57] LABS: Anion Gap 15.8 (5-19); Blood Urea Nitrogen 30 mg/dL (8-23); Calcium 9.5 mg/dL (8.5-10.5); Carbon Dioxide 23 mmol/L (22-29); Chloride 104 mmol/L (98-107); Glucose 93 mg/dL (65-115); Osmolality Calculated 292 mOsm/kg (285-295); Potassium 4.8 mmol/L (3.5-5.1); Sodium 138 mmol/L (136-145)
[2021-06-28 07:03] LABS: Procalcitonin 11.17 ng/mL (0-0.5)
[2021-06-28 08:00] VITALS: BP 120/65; PULSE 88; RESP 16; TEMP 36.7; O2SAT 93
[2021-06-28] MEDS: pantoprazole DR 40 mg Tablet PO (10:15)
--- NOTE | 2021-06-28 10:39 | PM.PN ---
Vitals/I&O/Wt Last Vital Signs Temp 98.0 F 06/28/21 08:00 Pulse 88 06/28/21 08:00 Resp 16 06/28/21 08:00 BP 120/65 06/28/21 08:00 Pulse Ox 93 06/28/21 08:00 06/27/21 06/28/21 06/28/21 22:59 06:59 14:59 Intake Total 120 / 120 340 / 460 Output Total 100 / 100 Balance 120 / 120 240 / 360 Weight last 48 hrs Weight 50.666 kg Weight 49.442 kg Weight 49.895 kg Physical Exam Const: COMMON NORMALS: patient oriented x3 HENMT: COMMON NORMALS: normocephalic, atraumatic, hearing grossly normal bilaterally and external ears normal HEAD & SCALP: normocephalic and atraumatic EXTERNAL EAR: Yes external ears normal Eye: COMMON NORMALS: no scleral icterus GENERAL EYE: appearance normal, both eyes and all related structures Chest: COMMONS NORMALS: normal inspection of the chest and normal palpation of entire chest wall CHEST: Yes Symmetrical chest wall rise Resp: COMMON NORMALS: normal respiratory effort, No retractions, No use of accessory muscles and clear to auscultation bilaterally EFFORT & INSPECTION: Yes symmetric chest movement AUSCULTATION: clear to auscultation bilaterally Cardio: COMMON NORMALS: regular rate, regular rhythm, S1 normal heart sound present, S2 normal heart sound present, No gallops present (Cardio), No murmurs present (Cardio), No rub (Cardio) and Peripheral pulses 2+ throughout RATE: regular rate RHYTHM: regular rhythm HEART SOUNDS: S1 normal heart sound present and S2 normal heart sound present PERIPHERAL PULSES: Peripheral pulses 2+ throughout GI: COMMON NORMALS: Normal to inspection, nondistended, normoactive bowel sounds present, Soft to palpation, non-tender, No hepatosplenomegaly present and no masses AUSCULTATION: Yes normoactive bowel sounds PALPATION: Yes Soft to palpation and Yes No hepatosplenomegaly present RECTAL EXAM: deferred Extremity: COMMON NORMALS: no clubbing, cyanosis or edema and no pedal edema Neuro: COMMON NORMALS: patient oriented x3 Data : 06/28/21 06:10 06/28/21 06:10 A&P Assessment and plan (1) Fall: Mechanical in nature Hx of multiple vertibroplasty CT thoracic/lumbar spine - no acute fx / ch. changes noted PT consult Fall precautions Status: Acute (2) Back pain: Pain control Status: Acute (3) Chronic kidney disease, stage 3: Creatinine 1.6 Appears to be at baseline Repeat labs in am Status: Acute Plan Cm/SW consult for home care PT/OT consultation Review and resume meds in am Coding Level of Care Code Acute Trash Collector Truck Driver for Chg Fwd Diagnoses Fall W19.XXXA Back pain M54.9 Chronic kidney disease, stage 3 N18.30
[2021-06-28 12:00] VITALS: BP 135/73; PULSE 84; RESP 16; TEMP 36.7; O2SAT 96
--- NOTE | 2021-06-28 12:01 | P.DS_ITS ---
Discharge Providers Date of Admission: 06/27/21 18:45 Date of Discharge: June 28, 2021 Attending Provider at Admission: Jonathan Nolan Attending Provider at Discharge: Edward Grimes MD Primary Care Provider: Ace Bedolla MD Diagnoses at Discharge Discharge Diagnosis (1) Fall: Status: Acute (2) Back pain: Status: Acute (3) Chronic kidney disease, stage 3: Status: Acute Reason for Visit Reason for Visit: FALL Hospital Course Hospital Course HPI: 81-year-old female with a past medical history significant for DVT in 2010, osteoporosis, ? Chronic stage 3 kidney disease with a baseline creatinine around 1.6, cervicogenic vertigo, macrocytosis with normal hemoglobin and chronic back pain with recent T12 compression fracture s/p kyphophasty/TLSO brace 01/2021 who is presenting to ER after she sustained a fall. No reported loss of consciousness. Patient stated she has a brace at home still hwoever does not routinely wear. Noted ongoing back pain. Laboratory workup showed a WBC of 15.9, hemoglobin 10.9, hematocrit 34.7 and platelet count of 222.? Sodium 136, potassium 5.0, chloride 101, bicarb 24, BUN 25 and creatinine of 1.6. Imaging studies included a chest pelvic/hip X-ray which did not show any acute abnormalities. A head CT which did not show any acute intracranial abnormality. CT of thoracic spine which showed chronic multi-level vertebral body compression fracture with prior vertebroplasty changes. Similar finding on CT lumbar spine. Patient was living at home with daughter and son in law who are currenlty away to [place]. Plan to return home tomorrow. Patient not able to care for self until they return.For this reason patient was admitted to the hospital overnight and arrangement of home care. Hospital course: Physical therapy was on board, patient was ambulating with a walker, did complain of some back pain , right lower rib cage pain, adequate pain control was done. Patient was advised to go to a nursing facility for proper care, but for now patient thinks she will be good at home, daughter wants to take her home today. Patient was appropriate for discharge from clinical standpoint.She has been discharged in stable condition to home. Physical Exam Const: COMMON NORMALS: patient oriented x3 HENMT: COMMON NORMALS: normocephalic, atraumatic, hearing grossly normal bilaterally and external ears normal HEAD & SCALP: normocephalic and atrau matic EXTERNAL EAR: Yes external ears normal Eye: COMMON NORMALS: no scleral icterus GENERAL EYE: appearance normal, both eyes and all related structures Chest: COMMONS NORMALS: normal inspection of the chest and normal palpation of entire chest wall CHEST: Yes Symmetrical chest wall rise Resp: COMMON NORMALS: normal respiratory effort, No retractions, No use of accessory muscles and clear to auscultation bilaterally EFFORT & INSPECTION: Yes symmetric chest movement AUSCULTATION: clear to auscultation bilaterally Cardio: COMMON NORMALS: regular rate, regular rhythm, S1 normal heart sound present, S2 normal heart sound present, No gallops present (Cardio), No murmurs present (Cardio), No rub (Cardio) and Peripheral pulses 2+ throughout RATE: regular rate RHYTHM: regular rhythm HEART SOUNDS: S1 normal heart sound present and S2 normal heart sound present PERIPHERAL PULSES: Peripheral pulses 2+ throughout GI: COMMON NORMALS: Normal to inspection, nondistended, normoactive bowel sounds present, Soft to palpation, non-tender, No hepatosplenomegaly present and no masses AUSCULTATION: Yes normoactive bowel sounds PALPATION: Yes Soft to palpation and Yes No hepatosplenomegaly present RECTAL EXAM: deferred Extremity: COMMON NORMALS: no clubbing, cyanosis or edema and no pedal edema Neuro: COMMON NORMALS: patient oriented x3 Discharge Data Studies Completed and Pending Completed Studies During Hospitalization Category Date Time Status CT head wo con* [id number] Urgent Cat Scan 06/27/21 16:[address] lumbar spine wo con* [id number] Urgent Cat Scan 06/27/21 16:[address] thoracic spin wo con* [id number] Urgent Cat Scan 06/27/21 16:27 Completed XR chest 1V portable [id number] Urgent Exams 06/27/21 16:27 Completed XR hip LT 2-3V wo/w pel* [id number] Urgent Exams 06/27/21 17:12 Completed XR pelvis 1-2V* [id number] Urgent Exams 06/27/21 16:27 Completed Radiology Impressions Chest X-Ray 06/27/21 16:27 IMPRESSION: No acute findings. Head CT 06/27/21 16:27 IMPRESSION: Negative for intracranial hemorrhage or mass effect Lumbar Spine CT 06/27/21 16:27 IMPRESSION: 1. Stable multilevel vertebral body compression fractures without retropulsion of bony fragments, similar to prior exam. 2. Emphysematous changes. 3. Inferior vena cava filter. Pelvis X-Ray 06/27/21 16:27 IMPRESSION: No acute findings. Thoracic Spine CT 06/27/21 16:27 IMPRESSION: 1. Multilevel chronic appearing vertebral body compression fractures and vertebroplasty changes without significant retropulsion of bony fragments, similar to prior exam. 2. Right lower lobe superior segment probable pleuroparenchymal scarring. 3. Coronary artery atherosclerotic calcifications. 4. Cholecystectomy. Hip/Pelvis X-Ray 06/27/21 17:12 IMPRESSION: No acute findings. Laboratory Results WBC 7.7 10^3/uL (4.0-10.0) 06/28/21 06:10 RBC 2.99 10^6/uL (4.1-5.3) L 06/28/21 06:10 Hgb 10.4 g/dL (11.5-15.3) L 06/28/21 06:10 Hct 32.0 % (37.0-47.0) L 06/28/21 06:10 MCV 107.0 fl (81-99) H 06/28/21 06:10 MCH 34.8 pg (28.0-34.0) H 06/28/21 06:10 MCHC 32.5 g/dL (30.0-36.0) 06/28/21 06:10 RDW 13.0 % (12.1-15.1) 06/28/21 06:10 Plt Count 194 10^3/cmm (130-400) 06/28/21 06:10 MPV 9.7 fL (7.4-10.4) 06/28/21 06:10 Neut % (Auto) 75.4 % 06/28/21 06:10 Lymph % (Auto) 15.9 % 06/28/21 06:10 [place] % (Auto) 6.1 % 06/28/21 06:10 Eos % (Auto) 1.7 % 06/28/21 06:10 Baso % (Auto) 0.5 % 06/28/21 06:10 Neut # (Auto) 5.77 10^3/uL (1.8-7.7) 06/28/21 06:10 Lymph # (Auto) 1.2 10^3/uL (0.8-4.8) 06/28/21 06:10 [place] # (Auto) 0.5 10^3/uL (0.2-0.9) 06/28/21 06:10 Eos # (Auto) 0.1 10^3/uL (0.0-0.8) 06/28/21 06:10 Baso # (Auto) 0.0 10^3/uL (0.0-0.1) 06/28/21 06:10 Nucleated RBC % (auto) 0 % 06/28/21 06:10 Nucleated RBCs # 0.0 /100WBC 06/28/21 06:10 Sodium 138 mmol/L (136-145) 06/28/21 06:10 Potassium 4.8 mmol/L (3.5-5.1) 06/28/21 06:10 Chloride 104 mmol/L (98-107) 06/28/21 06:10 Carbon Dioxide 23 mmol/L (22-29) 06/28/21 06:10 Anion Gap 15.8 (5-19) 06/28/21 06:10 BUN 30 mg/dL (8-23) H 06/28/21 06:10 Creatinine 1.6 mg/dL (0.5-0.9) H 06/28/21 06:10 GFR Calculation Not Reportable 06/28/21 06:10 Glucose 93 mg/dL (65-115) 06/28/21 06:10 Calculated Osmolality 292 mOsm/kg (285-295) 06/28/21 06:10 Calcium 9.5 mg/dL (8.5-10.5) 06/28/21 06:10 Procalcitonin 11.17 ng/mL (0-0.5) H 06/28/21 06:10 Urine Color Yellow (Yellow) 06/28/21 04:50 Urine Appearance Clear (CLEAR) 06/28/21 04:50 Urine pH 5 (5-7) 06/28/21 04:50 Ur Specific [place] 1.020 (1.005-1.030) 06/28/21 04:50 Urine Protein Neg (Negative) 06/28/21 04:50 Urine Glucose (UA) Norm (Normal) 06/28/21 04:50 Urine Ketones Negative (Negative) 06/28/21 04:50 Urine Blood 2+ (Negative) H 06/28/21 04:50 Urine Nitrate Negative (Negative) 06/28/21 04:50 Urine Bilirubin Neg (Negative) 06/28/21 04:50 Urine Urobilinogen Norm mg/dL (Negative) 06/28/21 04:50 Ur Leukocyte Esterase 2+ (Negative) H 06/28/21 04:50 Urine RBC 5-10 /hpf (0-2) H 06/28/21 04:50 Urine WBC 10-15 /hpf (0-5) H 06/28/21 04:50 Ur Squamous Epith Cells 0-4 /hpf (0-5) H 06/28/21 04:50 Amorphous Sediment Not Reportable 06/28/21 04:50 Urine Bacteria 1+ /hpf (NONE) H 06/28/21 04:50 Vitals Last Vital Signs Temp 98.0 F 06/28/21 08:00 Pulse 88 06/28/21 08:00 Resp 16 06/28/21 08:00 BP 120/65 06/28/21 08:00 Pulse Ox 93 06/28/21 08:00 Discharge Plan Discharge Patient Disposition: Home Condition: Stable Prescriptions: New acetaminophen 325 mg Tablet 650 mg PO Q6H PRN (Reason: Mild/Mod Pain Or Temp >/= 101) 7 Days Qty: 15 0RF Percocet 2.5-325 mg tablet 1 tab PO Q8H PRN (Reason: pain) Qty: 7 0RF Continued cyanocobalamin (vitamin B-12) 1,000 mcg/mL solution 1,000 mcg IM Q30D 0RF fluticasone propionate 50 mcg/actuation spray,suspension 1 spray INTRANASAL BID PRN (Reason: Allergy Symptoms) 0RF aspirin 81 mg tablet,delayed release (DR/EC) 81 mg PO DAILY Qty: 30 0RF Discharge Orders: Discharge Order (Routine); Ordered 06/28/21 Ordered By: Edward Grimes Referrals: Ace Bedolla MD [Primary Care Provider] - 2 weeks (PLEASE CALL [phone] TO SET UP AN APPOINTMENT TO SEE DR. BEDOLLA WITHIN A COUPLE OF WEEKS. ) Discharge Activity: Increase activity as tolerated Patient Instructions: Back Pain, Oxycodone/Acetaminophen (By mouth) (Percocet, Roxicet), Chronic Kidney Disease (DC), How to Choose and Use a Walker (GEN), Weakness (DC), Fall Prevention (DC), Opioid Safety Discharge Attestations Time Spent in Discharge Care*: greater than 30 min Specific Discharge Activities: educating patient, educating and/or supporting family/caregiver, discussing with pcp/other providers, discussing with foster care case manager/social workers/dc planners, documenting/other paperwork and evaluating patient/reviewing data Quality Metrics Clinical Quality Measures [ No reported AMI, CVA or VTE this stay] Coding Level of Care Code Acute Chg FW DC note Diagnoses Fall W19.XXXA Back pain M54.9 Chronic kidney disease, stage 3 N18.30
--- NOTE | 2021-06-28 12:05 | PC.CHAP ---
Pastoral Care Encounter/Spiritual Assessment Type of Contact [] Declined ribbon inker visit [] Patient/Family/Request visit [] Outpatient visit [] Follow-up visit [] Physician referral [] Code/Alert [X] Routine visit [] Staff referral [] Actively dying [] Patient sleeping [] Family support [] [] Out of room [] Palliative care [] [X] Receiving care in room [] Pre-surgical visit [] Trauma [] Long length of stay [] ICU visit [] Other: Relational/Emotional Strength [] Patient feels connected with others/family/visitors/staff [] Distress [] Loneliness/isolation [] Abandonment Spirituality of Patient [] Person of Michelle [] Attends Jainism of their Michelle [] Believes in Prayer [] Reads Bible or Yarsanism materials [] There are Spiritual issues to be addressed Car Rental Sales Assistant Interventions [] Prayer [] Active listening [] Non-anxious presence [] Spiritual/emotional support [] Crisis/trauma care [] Spiritual counseling [] Bereavement support [] Provided bereavement packet [] Provided Bible/devotional materials [] Provided toy/stuffed animal, coloring book to patient or family member [] Provided Communion [] Anointing/[place] [] Salvation [] Completed spiritual assessment [] Other: Impact on Illness or Injury [] Angry [] Fearful [] Anxious [] Often cries [] Exhaustion [] Unable to work [] Unable to attend gnosticist [] Unable to walk/stand [] Unable to read [] Unable to drive [] Unable to eat/drink [] Unable to sleep [] Unable to be with family [] Patient intubated [] Other: Summary Time spent with patient
--- NOTE | 2021-06-28 12:51 | PC.NURSE ---
PT WILL DISCHARGE THIS EVENING. DISCHARGE PAPERWORK GONE OVER WITH PT. ALL QUESTIONS ANSWERED. OXYCODONE SCRIPT WAS PRINTED AND SIGNED BY PHYSICIAN. DISCHARGE PAPERWORK AND PRESCRIPTION WERE PUT IN PTS DISCHARGE FOLDER AND INTO PTS BELONGING BAG. IV REMOVED. PT TOLERATED WELL. CATHETER TIP INTACT. PT IS READY TO DISCHARGE JUST WAITING FOR RIDE. PTS DAUGHTER WILL BE HERE AT 1800 TO GET HER AND TAKE HER HOME.
[2021-06-28 16:00] VITALS: BP 149/66; PULSE 93; RESP 16; TEMP 36.5; O2SAT 95
--- NOTE | 2021-06-28 18:01 | PC.NURSE ---
PT IS DOING WELL. PT IS UP TO CHAIR, CURRENTLY EATING DINNER AND WATCHING TV. SHE IS DRESSED AND READY TO GO. JUST WAITING ON RIDE TO GET HERE. WILL CONTINUE TO MONITOR PT.
--- NOTE | 2021-06-28 19:18 | PC.NURSE ---
PTS DAUGHTER CALLED BETWEEN [phone] AND SAID SHE WAS IN TRAFFIC THAT SHE WOULD BE LATE GETTING HERE. THIS NURSE INFORMED HER THAT THAT WOULD BE OK, NO PROBLEM. THE DAUGHTER ARRIVED AT AROUND [phone]. THE DAUGHTER IS NOW STATING THAT SHE CAN NOT TAKE THE PT HOME AND IS UNABLE TO TAKE THE PT HOME NOW. THE DOCTOR WAS NOTIFIED AT 184 THAT THE DAUGHTER WAS WANTING TO TALK TO HIM. DOCTOR TOVAR REPLIED BACK AT 184 AND SAID THAT HE HAD ALREADY LEFT THE HOSPITAL, HE WOULD CALL HER TOMORROW. THE DOCTOR WAS THEN NOTIFIED THAT THE DAUGHTER, WHO IS THE PTS DPOA, COULD NOT TAKE HER HOME ALL OF THE SUDDEN. THE DOCTOR THEN CALLED THIS NURSE AND ASKED WHAT WAS GOING ON. 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 DR TOVAR SAID HE UNDERSTANDS HER CONCERNS BUT AT THE SAME TIME THE PT IS ALSO ALERT AND ORIENTATED AND IS ABLE TO MAKE HER OWN DECISIONS; WE CANT FORCE A LONGTERM ON HER. DR TOVAR THEN PROCEEDED TO TELL THIS NURSE THAT WE NEED TO JUST LET THE PT STAY THE NIGHT AND HE WILL DEAL WITH THIS ISSUE TOMORROW. HE IS GONE AND IS NOT COMING BACK TO THE HOSPITAL. HE TOLD THIS NURSE NOT TO BOTHER HIM AGAIN. THIS NURSE WENT AND TALKED TO THE PT WELL HER DAUGHTER AND THEY AGREED TO STAYING ONE MORE NIGHT; THE DAUGHTER GOING TO HER HOUSE AND TRYING TO GET THINGS FIGURED OUT AND THE PT TO STAY HERE ONE MORE NIGHT AND DISCUSS A PLAN WITH THE DOCTOR TOMORROW. SO THE PT WILL STAY HERE TONIGHT AND WE WILL CONTINUE TO CARE FOR AND MONITOR HER.
[2021-06-28 20:00] VITALS: BP 109/69; PULSE 94; RESP 17; TEMP 36.5; O2SAT 93
[2021-06-29 04:00] VITALS: BP 154/85; PULSE 95; RESP 17; TEMP 36.9; O2SAT 92
[2021-06-29 07:49] VITALS: BP 147/77; PULSE 85; RESP 12; TEMP 36.8; O2SAT 90
[2021-06-29] MEDS: pantoprazole DR 40 mg Tablet PO (09:00)
[2021-06-29] MEDS: HYDROcodone-acetaminophen 5-325 mg Tablet 1 TAB PO ×2 (09:00→13:44)
[2021-06-29 13:53] VITALS: BP 147/77; PULSE 85; RESP 12; TEMP 36.8; O2SAT 90
== END 2021-06-29 13:55 | disposition home or self-care (01) ==
LOC: ER 19:03 → MEDSURG 19:37
PROVIDERS: Admitting Provider Hospitalist; Emergency Provider Emergency Medicine; PCP Family Medicine; Visit Provider Internal Medicine
DX: M54.9 Dorsalgia, unspecified (principal); Z91.81 History of falling; N18.30 Chronic kidney disease, stage 3 unspecified; N17.9 Acute kidney failure, unspecified; Z86.718 Personal history of other venous thrombosis and embolism; M81.0 Age-related osteoporosis without current pathological fracture; Z79.82 Long term (current) use of aspirin
CPT/HCPCS: 36415; 70450; 71045; 72128; 72131; 72170; 73502; 80048; 81001; 84145; 85025; 96372; 96374; 96376; 97161; 97165; 97530; 99285; G0378; J1644; J2270